=== PATIENT | female | born 1930 | race Caucasian/White ===

== ENCOUNTER 2016-10-23 12:18 | Inpatient (IN) | payer MEDICARE, OTHER ==
[~2016-10-23] VITALS: Ht 162.6 cm; Wt 97.5 kg
[~2016-10-23 12:18] MED LIST: ALBU2.5V38 IH; ASPI-991 PO; CALC-343 PO; CARB-93 PO; CHOL50004 PO; CIPR-262 PO; DEXT15DR23 EACHEYE; ERGO400C PO; ESCI20TA PO; FLUT16SP BNOSTRILS; FURO40TA5 PO; GUAI480S10 PO; LATA2.5D2 EACHEYE; LEVO100T9 PO; LOPE2TAB25 PO; MECL-102 PO; METO2.5T2 PO; OLOP2.5D EACHEYE; OXYB5TAB11 PO; POTA20TA83 PO; PRIM50TA PO; TEMA15CA PO; TOPI50TA21 PO; TRAZ-144 PO; TRIA60LO8 TP
--- NOTE | 2016-10-23 12:24 | NUR ---
PT SIVAKUMAR FROM [facility]. MEDICAL EVAL. HERE FOR FLU SYMPTOMS, COUGH AND CONGESTION X 3 DAYS. 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 STABLE VITALS. AWAITING MD WADDELL.
--- NOTE | 2016-10-23 12:39 | NUR ---
DR LI AT BEDSIDE FOR EVAL.
--- NOTE | 2016-10-23 12:50 | NUR ---
IV LINE STARTED BLOOD DRAWN AND SENT TO LAB.
[2016-10-23 12:57] LABS: BASOPHILS % (AUTO) 0.6 % (0.0-2.0); EOSINOPHILS # (AUTO) 0.2 /CMM (0.0-0.7); EOSINOPHILS % (AUTO) 4.5 % (0.0-6.0); HEMATOCRIT 36 % (33-45); HEMOGLOBIN 12.2 g/dL (11.5-14.8); LYMPHOCYTES # (AUTO) 1.8 /CMM (0.8-4.8); LYMPHOCYTES % (AUTO) 40.8 % (20.0-44.0); MEAN CORPUSCULAR HEMOGLOBIN 32 PG (26.0-33.0); MEAN CORPUSCULAR HGB CONC 34 g/dl (31.0-36.0); MEAN CORPUSCULAR VOLUME 95 fL (82-100); MONOCYTES # (AUTO) 0.4 /CMM (0.1-1.30); MONOCYTES % (AUTO) 7.9 % (2.0-12.0); NEUTROPHILS % (AUTO) 46.2 % (43.0-81.0); PLATELET COUNT (AUTO) 204 /CMM (150-450); RDW COEFFICIENT OF VARIATION 13.1 (11.5-15.0); RED BLOOD CELL COUNT(AUTO) 3.82 MIL/uL (4.0-5.2); WHITE BLOOD COUNT (AUTO) 4.4 K/uL (4.3-11.0)
[2016-10-23 13:07] LABS: CALCIUM, SERUM 8.7 mg/dL (8.5-10.1); CARBON DIOXIDE 26 mmol/L (21-32); CHLORIDE 107 mmol/L (98-107); GLUCOSE 108 mg/dL (74-106); SODIUM SERUM 141 mmol/L (136-145); UREA NITROGEN, BLOOD 15 mg/dL (7-18)
[2016-10-23] MEDS ORDERED: MELO-270 PO (13:09)
[2016-10-23] MEDS ORDERED: DEXT1CAP3 PO (13:09)
[2016-10-23] MEDS ORDERED: ALBU8.5H2 IH (13:09)
[2016-10-23] MEDS ORDERED: GUAI100S11 PO (13:09)
[2016-10-23] MEDS ORDERED: LEVO500T90 PO (13:09)
[2016-10-23] MEDS ORDERED: OXYB10TA PO (13:09)
[2016-10-23] MEDS ORDERED: ACET-2605 PO (13:09)
[2016-10-23 13:13] LABS: ALANINE AMINOTRANSFERASE 10 U/L (12-78); ALKALINE PHOSPHATASE 74 U/L (46-116); ASPARTATE AMINOTRANSFERASE 13 U/L (15-37); TOTAL PROTEIN, SERUM 6.6 g/dL (6.4-8.2)
[2016-10-23 13:15] LABS: TROPONIN I < 0.017 ng/mL (0.00-0.056)
[2016-10-23 13:19] LABS: APPEARANCE,URINE Clear (CLEAR); BILIRUBIN,URINE Negative (NEGATIVE); BLOOD, URINE Negative Ery/uL (NEGATIVE); COLOR,URINE Yellow (YELLOW); KETONES,URINE Negative (NEGATIVE); LEUKOCYTE ESTERASE ,URINE Negative (NEGATIVE); NITRITE, URINE Negative (NEGATIVE); PROTEIN,URINE Negative (NEGATIVE); UGLUCOSE Negative (NEGATIVE); UROBILINOGEN,URINE 0.2 EU/dL (0.2)
[2016-10-23 13:21] LABS: INR 0.95 (0.87-1.13); PROTHROMBIN TIME 9.9 SECS (9.5-12.7)
[2016-10-23 13:24] LABS: BILIRUBIN,DIRECT 0.1 mg/dL (0.0-0.2); BILIRUBIN,TOTAL 0.1 mg/dL (0.2-1.0)
[2016-10-23 13:55] LABS: LACTIC ACID 1.9 mmol/L (0.4-2.0)
--- NOTE | 2016-10-23 13:57 | NUR ---
DOCTOR TOM ON THE PHONE FOR DOCTOR LI.
[2016-10-23] MEDS ORDERED: VANCOMYCIN 1 GM in IV D5W 250 ML IV ONE (14:00)
[2016-10-23] MEDS ORDERED: CEFEPIME 1 GM in IV D5W 50 ML IV ONE (14:00)
[2016-10-23] MEDS ORDERED: IV SET PRIMARY PUMP SET 1 EA INFUS.SET MC ONE (14:10)
--- NOTE | 2016-10-23 15:03 | NUR ---
REPORT GIVEN TO MARIO. PT AWAITING TRANSFER TO FLOOR.
[2016-10-23 15:30] VITALS: BP 125/62
[2016-10-23] MEDS ORDERED: SECONDARY IV SET 1 EA INFUS.SET MC ONE ×2 (15:34→17:38)
[2016-10-23] MEDS ORDERED: IV D5/ 0.9% NACL 1,000 ML IV ONE (15:34)
--- NOTE | 2016-10-23 16:00 | NUR ---
ADMITTED FROM ER BY ELY. PT. AWAKE, ALERT AND ORIENTED X3, BUT FORGETFUL. DENIED PAIN AND SOB. SAO2 >95% ON RA. SKIN INTACT. VS STABLE. LT ARM # 20G. GIVEN UNIT ORIENTATION TO THE PT AND FAMILY. UNDERSTOOD WELL. SIDE RAILS UP. CALL LIGHT WITHIN REACH. BED ALARM ON. MONITOR CLOSELY.
[2016-10-23] MEDS: IV D5/ 0.9% NACL 1,000 ML IV PRN (17:07)
[2016-10-23] MEDS: CEFTRIAXONE 1 G in IV D5W 50 ML IV SCH (17:42)
[2016-10-23] MEDS: ENOXAPARIN SODIUM 40 MG/0.4 ML DISP.SYRIN SQ SCH (17:43)
[2016-10-23] MEDS: AZITHROMYCIN 250 MG TABLET PO SCH (17:52)
--- NOTE | 2016-10-23 18:54 | NUR ---
CLOSING SHIFT PT. AWAKE, ALERT AND ORIENTED X3, FORGETFUL. DENIED PAIN AND SOB. CALL LIGHT WITHIN REACH. SIDE RAILS UP. MONITOR CLOSELY.
[2016-10-23 20:00] VITALS: BP 134/56
--- NOTE | 2016-10-23 20:00 | NUR ---
MS/RN NOTES RECEIVED PATIENT IN BED, AWAKE. FAMILY MEMBER AT BEDSIDE. TANGIRNAQ. BUT ABLE TO VERBALIZE NEEDS. ALERT, ORIENTED X3. NO S/S OF SOB OR DISTRESS. WILL CONTINUE MONITOR AND PROVIDE CARE. CALL LIGHTS WITHIN REACH . PROVIDE FLUIDS. WILL CONTINUE MONITORING.
[2016-10-23] MEDS: ACETAMINOPHEN 325 MG TABLET PO PRN (20:43)
--- NOTE | 2016-10-23 22:00 | NUR ---
MS/RN NOTES PATIENT REQUESTED FOR A SLEEPING PILL STATED "i COULD NOT FALL ASLEEP " MD CALLED AND AWAITING FOR RETURN CALL. KEPT PATIENT COMFORTABLE. PATIENT PREFER TO WATCH TV HER HER PREFERENCE SO SHE CAN FALL ASLEEP.
[2016-10-24] MEDS: ACETAMINOPHEN 325 MG TABLET PO PRN ×2 (01:45→09:37)
--- NOTE | 2016-10-24 01:46 | NUR ---
MS/RN NOTES PATIENT REQUESTED PAIN MEDICATION TO RELIEVE PAIN IN THE HEAD.
[2016-10-24] MEDS: IV D5/ 0.9% NACL 1,000 ML IV PRN (04:19)
--- NOTE | 2016-10-24 06:07 | NUR ---
MS/RN CLOSING NOTES PATIENT IN BED, AWAKE, NO S/S OF SOB OR DISTRESS. PREFER TO HAVE TV ON TO HELP HER SLEEP AND VERBALIZED THE NEED TO HAVE SLEEPING PILL. MD LEFT MESSAGE AWAITING FOR ORDER. PATIENT WILL ENDORSE TO AM RN FOR TESHA.PROVIDED COMFORT MEASURES, ATTEND TO NEEDS AND MONITORED FOR ANY PAIN AND EFFECTIVENESS.
[2016-10-24 07:03] LABS: BASOPHILS % (AUTO) 0.7 % (0.0-2.0); EOSINOPHILS # (AUTO) 0.3 /CMM (0.0-0.7); EOSINOPHILS % (AUTO) 6.5 % (0.0-6.0); HEMATOCRIT 34 % (33-45); HEMOGLOBIN 11.3 g/dL (11.5-14.8); LYMPHOCYTES # (AUTO) 1.8 /CMM (0.8-4.8); LYMPHOCYTES % (AUTO) 40.6 % (20.0-44.0); MEAN CORPUSCULAR HEMOGLOBIN 32 PG (26.0-33.0); MEAN CORPUSCULAR HGB CONC 33 g/dl (31.0-36.0); MEAN CORPUSCULAR VOLUME 95 fL (82-100); MONOCYTES # (AUTO) 0.4 /CMM (0.1-1.30); MONOCYTES % (AUTO) 8.6 % (2.0-12.0); NEUTROPHILS # (AUTO) 1.9 /CMM (1.8-8.9); NEUTROPHILS % (AUTO) 43.6 % (43.0-81.0); PLATELET COUNT (AUTO) 216 /CMM (150-450); RDW COEFFICIENT OF VARIATION 13.2 (11.5-15.0); RED BLOOD CELL COUNT(AUTO) 3.58 MIL/uL (4.0-5.2); WHITE BLOOD COUNT (AUTO) 4.4 K/uL (4.3-11.0)
[2016-10-24] MEDS: PANTOPRAZOLE 40 MG TABLET.DR PO SCH (07:30)
--- NOTE | 2016-10-24 07:36 | NUR ---
RN AM NOTES RECEIVED PATIENT AWAKE IN BED, WATCHING TV. ALERT AND ORIENTED X3. NO SOB, DISTRESS OR PAIN. WILL CONTINUE TO MONITOR.
[2016-10-24 08:00] VITALS: BP 104/49
[2016-10-24 08:20] LABS: CALCIUM, SERUM 8.3 mg/dL (8.5-10.1); MAGNESIUM 1.5 mg/dL (1.8-2.4); PHOSPHORUS 3.7 mg/dL (2.5-4.9)
--- NOTE | 2016-10-24 08:40 | NUR ---
SPOKE TO DAUGHTER GOPAL RE: MD ROUNDS. INFORMED PATIENT THAT WE DO NOT KNOW THE MD'S EXACT SCHEDULE, BUT I CAN CALL HIS OFFICE TO FIND OUT. DAUGHTER AGREED. CALLED AND LEFT A MESSAGE AT PRIMARY MD'S OFFICE. INFORMED DAUGHTER, SHE VERBALIZED UNDERSTANDING. WILL CONTINUE TO MONITOR PATIENT
[2016-10-24] MEDS ORDERED: Magnesium 1GM/D5W 100ML PREMIX 100 ML IV SCH (11:09)
[2016-10-24] MEDS ORDERED: ACETAMINOPHEN W/ CODEINE#3 1 EA TABLET PO PRN (12:00)
[2016-10-24] MEDS ORDERED: FUROSEMIDE 20 MG/2 ML VIAL IV ONE (12:30)
[2016-10-24] MEDS ORDERED: SECONDARY IV SET 1 EA INFUS.SET MC ONE (13:11)
[2016-10-24] MEDS ORDERED: ALBUTEROL FS 2.5 MG/3 ML VIAL.NEB NEB PRN (13:30)
[2016-10-24] MEDS: Magnesium 1GM/D5W 100ML PREMIX 100 ML IV SCH ×2 (13:34→14:03)
[2016-10-24] MEDS: CARBIDOPA/LEVODOPA 25/100 MG 1 UDTAB PO SCH ×2 (13:34→18:06)
[2016-10-24] MEDS: ASPIRIN EC 81 MG TABLET.DR PO SCH (13:34)
[2016-10-24] MEDS: POLYVINYL ALCOHOL 15 ML BOTTLE EACHEYE SCH (13:35)
[2016-10-24] MEDS: FLUTICASONE PROPIONATE 16 GM BOTTLE NS SCH (13:35)
--- NOTE | 2016-10-24 15:35 | NUR ---
CALLED MD X 2 RE: PATIENT'S ALLERGIES AND PAIN MEDICATIONS. STILL AWAITING ANSWER
[2016-10-24 16:00] VITALS: BP 123/63
[2016-10-24] MEDS: AZITHROMYCIN 250 MG TABLET PO SCH (18:06)
[2016-10-24] MEDS: PRIMIDONE 50 MG TABLET PO SCH (18:06)
[2016-10-24] MEDS: TOPIRAMATE 25 MG TABLET PO SCH (18:06)
[2016-10-24] MEDS: ENOXAPARIN SODIUM 40 MG/0.4 ML DISP.SYRIN SQ SCH (18:10)
[2016-10-24] MEDS: CEFTRIAXONE 1 G in IV D5W 50 ML IV SCH (18:15)
[2016-10-24] MEDS ORDERED: TRAMADOL HCL 50 MG TABLET PO PRN (18:30)
--- NOTE | 2016-10-24 18:44 | NUR ---
RN PM NOTES PATIENT TOLERATED IV INFUSIONS WELL. TOLERATED DINNER WITH NO EPISODES OF SOB. WITH SLIGHT PRODUCTIVE COUGH, CLEAR, WHITE SPUTUM. MD ORDERED PAIN MEDICATIONS REQUESTED BY PATIENT. ALL HOME MEDS IN CHART. MED REC DONE BY MD SANTOS. WILL ENDORSE TO NEXT SHIFT.
--- NOTE | 2016-10-24 19:39 | NUR ---
RN OPEN NOTES RECEIVED PATIENT AWAKE IN BED. A/OX3. NO SIGNS OF DISTRESS OR DISCOMFORT. BREATHING EVEN AND UNLABORED. ON 2LMP O2 VIA NC. IV ACCESS IN LAC WITH NS INFUSING, PATENT AND INTACT, NO SIGNS OF REDNESS OR INFILTRATION. BED IN LOW LOCKED POSITION WITH SIDE RAILS X2. CALL LIGHT WITHIN REACH. WILL CONTINUE TO MONITOR.
[2016-10-24 20:00] VITALS: BP 125/50
[2016-10-24] MEDS ORDERED: MISCELLANEOUS MED 1 EA EA PO SCH (22:00)
[2016-10-24] MEDS: TRAZODONE 50 MG TABLET PO SCH (22:39)
[2016-10-24] MEDS: LATANOPROST EYE DROP 0.005% 2.5 ML BOTTLE EACHEYE SCH (22:40)
--- NOTE | 2016-10-25 06:58 | NUR ---
RN CLOSING NOTES PATIENT RESTING IN BED. A/OX3. NO SIGNS OF DISTRESS OR DISCOMFORT. BREATHING EVEN AND UNLABORED. ON 2LMP O2 VIA NC. IV ACCESS IN LAC, PATENT AND INTACT, NO SIGNS OF REDNESS OR INFILTRATION. NO SIGNIFICANT CHANGES THROUGH THE NIGHT. PATIENT KEPT CLEAN DRY AND COMFORTABLE. BED IN LOW LOCKED POSITION WITH SIDE RAILS X2. CALL LIGHT WITHIN REACH. WILL ENDORSE TO AM SHIFT FOR TESHA.
[2016-10-25 06:59] LABS: BASOPHILS % (AUTO) 0.8 % (0.0-2.0); EOSINOPHILS # (AUTO) 0.3 /CMM (0.0-0.7); EOSINOPHILS % (AUTO) 6.5 % (0.0-6.0); HEMATOCRIT 33 % (33-45); HEMOGLOBIN 11.2 g/dL (11.5-14.8); LYMPHOCYTES # (AUTO) 1.5 /CMM (0.8-4.8); LYMPHOCYTES % (AUTO) 34.3 % (20.0-44.0); MEAN CORPUSCULAR HEMOGLOBIN 32 PG (26.0-33.0); MEAN CORPUSCULAR HGB CONC 34 g/dl (31.0-36.0); MEAN CORPUSCULAR VOLUME 95 fL (82-100); MONOCYTES # (AUTO) 0.4 /CMM (0.1-1.30); MONOCYTES % (AUTO) 8.8 % (2.0-12.0); NEUTROPHILS # (AUTO) 2.2 /CMM (1.8-8.9); NEUTROPHILS % (AUTO) 49.6 % (43.0-81.0); PLATELET COUNT (AUTO) 200 /CMM (150-450); RDW COEFFICIENT OF VARIATION 13.7 (11.5-15.0); RED BLOOD CELL COUNT(AUTO) 3.49 MIL/uL (4.0-5.2); WHITE BLOOD COUNT (AUTO) 4.5 K/uL (4.3-11.0)
--- NOTE | 2016-10-25 07:10 | NUR ---
MS RN OPENING RECEIVED PT A/OX4 SLEEPING AWAKE TO NAME. PATIENT DENIES SOB, DIFFICULTY BREATHING AND STATES "BARELY ANY" PAIN 2/10 GENERALIZED FROM COUGHING. PT RESPIRATIONS EQUAL AND UNLABORED. PT STATES NO NEEDS AT THIS TIME. IN POSITION OF COMFORT. NC ON 2 LPM; WE WILL CHECK PATIENT ROOM AIR STATUS TODAY. PT WITH CALL LIGHT IN REACH, BED LOWERED AND LOCKED, RAILS UPX3 FOR SAFETY AND WILL ROUND Q2H OR LESS PER NEEDS. BED ALARM ON.
[2016-10-25 07:26] LABS: CREATININE 0.9 mg/dL (0.6-1.3); MAGNESIUM 2.1 mg/dL (1.8-2.4); POTASSIUM 4.1 mmol/L (3.5-5.1)
[2016-10-25 08:00] VITALS: BP 146/81
[2016-10-25] MEDS: CARBIDOPA/LEVODOPA 25/100 MG 1 UDTAB PO SCH ×3 (08:19→16:55)
[2016-10-25] MEDS: ASPIRIN EC 81 MG TABLET.DR PO SCH (08:19)
[2016-10-25] MEDS: MELOXICAM 7.5 MG TABLET PO SCH (08:20)
[2016-10-25] MEDS: PANTOPRAZOLE 40 MG TABLET.DR PO SCH (08:20)
[2016-10-25] MEDS: TOPIRAMATE 25 MG TABLET PO SCH ×2 (08:20→16:55)
[2016-10-25] MEDS: LEVOTHYROXINE SODIUM 100 MCG TABLET PO SCH (08:20)
[2016-10-25] MEDS: PRIMIDONE 50 MG TABLET PO SCH ×2 (08:20→16:55)
[2016-10-25] MEDS: FLUTICASONE PROPIONATE 16 GM BOTTLE NS SCH (08:22)
[2016-10-25] MEDS: POLYVINYL ALCOHOL 15 ML BOTTLE EACHEYE SCH (08:22)
[2016-10-25 09:51] LABS: IRON, SERUM 49 ug/dl (50-175); TOTAL IRON BINDING CAPACITY 206 ug/dl (250-450)
[2016-10-25] MEDS: FUROSEMIDE 40 MG/4 ML VIAL IV SCH ×3 (10:09→16:55)
[2016-10-25 10:44] LABS: FERRITIN 67 ng/mL (8-388)
--- NOTE | 2016-10-25 15:23 | NUR ---
MS RN NOTES NOTIFIED MD SANTOS PATIENT POSITIVE FOR MRSA NARES
[2016-10-25 16:00] VITALS: BP 136/79
[2016-10-25] MEDS: Z GUARD REMEDY 2 OZ OINT TP PRN (16:55)
[2016-10-25] MEDS: MUPIROCIN OINT 2% 22 GM TUBE SCH ×2 (16:55→22:42)
[2016-10-25] MEDS: CEFTRIAXONE 1 G in IV D5W 50 ML IV SCH (16:55)
[2016-10-25] MEDS: AZITHROMYCIN 250 MG TABLET PO SCH (16:55)
[2016-10-25] MEDS: ENOXAPARIN SODIUM 40 MG/0.4 ML DISP.SYRIN SQ SCH (17:15)
--- NOTE | 2016-10-25 18:37 | NUR ---
MS RN CLOSING PT STABLE NO COMPLAINTS AND NO CHANGES THROUGHOUT THE DAY. PT STATES NO NEEDS AT THIS TIME. ALL DUE MEDS GIVEN AND ALL NEEDS MET. PATIENT IN POSITION OF COMFORT WITH CALL LIGHT IN REACH, BED LOWERED AND LOCKED, RAILS UPX3 FOR SAFETY AND WILL ENDORSE TO RN AT THIS TIME.
--- NOTE | 2016-10-25 19:15 | NUR ---
RN OPEN NOTES RECEIVED PATIENT AWAKE IN BED. A/OX4. NO SIGNS OF DISTRESS OR DISCOMFORT. BREATHING EVEN AND UNLABORED. ON 2LMP O2 VIA NC. IV ACCESS IN LFA, PATENT AND INTACT, NO SIGNS OF REDNESS OR INFILTRATION. DENIES ANY PAIN AT THIS TIME. BED IN LOW LOCKED POSITION WITH SIDE RAILS X3. CALL LIGHT WITHIN REACH. WILL CONTINUE TO MONITOR.
[2016-10-25 19:45] VITALS: BP 96/44
[2016-10-25 20:00] VITALS: BP 96/44
[2016-10-25 22:41] VITALS: BP 111/55
[2016-10-25] MEDS: LATANOPROST EYE DROP 0.005% 2.5 ML BOTTLE EACHEYE SCH (22:41)
[2016-10-25] MEDS: ESCITALOPRAM OXALATE (10 MG) 10 MG TABLET PO SCH (22:41)
[2016-10-25] MEDS: TRAZODONE 50 MG TABLET PO SCH (22:41)
--- NOTE | 2016-10-26 07:15 | NUR ---
MS RN OPENING RECEIVED PT A/OX4 DENIES SOB, DIFFICULTY BREATHING OR PAIN. PATIENT STATES NON PRODUCTIVE COUGH STILL. RESPIRATIONS EQUAL AND UNLABORED NO MUCOUS PRODUCTION WITH COUGHING. PATIENT STATES NO NEEDS AT THIS TIME. PATIENT EDUCATED IMPORTANCE OF GETTING OUT OF BED, TURNING AND OFFLOADING TO PROTECT SKIN. PATIENT IS AGREEABLE TO ALLOWING OFFLOADING IN BED AND PT WAS ORDERED YESTERDAY AND THEY WILL SEE TODAY. CALL LIGHT IN REACH, BED LOWERED AND LOCKED, RAILS UPX3 FOR SAFETY AND BED ALARM ON. WILL CONTINUE TO ROUND Q2H OR LESS PER NEEDS
[2016-10-26 07:18] LABS: ALBUMIN 2.6 g/dL (3.4-5.0); BILIRUBIN,TOTAL 0.2 mg/dL (0.2-1.0); CALCIUM, SERUM 8.1 mg/dL (8.5-10.1); CREATININE 1.1 mg/dL (0.6-1.3); MAGNESIUM 1.9 mg/dL (1.8-2.4); PHOSPHORUS 3.4 mg/dL (2.5-4.9); POTASSIUM 3.6 mmol/L (3.5-5.1)
[2016-10-26 07:45] LABS: BASOPHILS % (AUTO) 0.6 % (0.0-2.0); EOSINOPHILS # (AUTO) 0.3 /CMM (0.0-0.7); EOSINOPHILS % (AUTO) 6.6 % (0.0-6.0); HEMATOCRIT 36 % (33-45); HEMOGLOBIN 11.9 g/dL (11.5-14.8); LYMPHOCYTES % (AUTO) 38.9 % (20.0-44.0); MEAN CORPUSCULAR HEMOGLOBIN 32 PG (26.0-33.0); MEAN CORPUSCULAR HGB CONC 33 g/dl (31.0-36.0); MEAN CORPUSCULAR VOLUME 95 fL (82-100); MONOCYTES # (AUTO) 0.5 /CMM (0.1-1.30); NEUTROPHILS # (AUTO) 2.3 /CMM (1.8-8.9); NEUTROPHILS % (AUTO) 44.9 % (43.0-81.0); PLATELET COUNT (AUTO) 231 /CMM (150-450); RDW COEFFICIENT OF VARIATION 14.2 (11.5-15.0); RED BLOOD CELL COUNT(AUTO) 3.75 MIL/uL (4.0-5.2)
--- NOTE | 2016-10-26 07:56 | NUR ---
RN CLOSING NOTES PATIENT AWAKE IN BED. A/OX4. NO SIGNS OF DISTRESS OR DISCOMFORT. BREATHING EVEN AND UNLABORED. ON 2LMP O2 VIA NC. IV ACCESS IN LFA, PATENT AND INTACT, NO SIGNS OF REDNESS OR INFILTRATION. DENIES ANY PAIN AT THIS TIME. NO SIGNIFICANT CHANGES THROUGH THE NIGHT. PATIENT KEPT CLEAN DRY AND COMFORTABLE. REPOSITIONED PT Q2H. BED IN LOW LOCKED POSITION WITH SIDE RAILS X3. CALL LIGHT WITHIN REACH. ENDORSED TO AM SHIFT FOR TESHA.
[2016-10-26 08:00] VITALS: BP 117/61
[2016-10-26] MEDS: LEVOTHYROXINE SODIUM 100 MCG TABLET PO SCH (08:25)
[2016-10-26] MEDS: TOPIRAMATE 25 MG TABLET PO SCH ×2 (08:26→16:48)
[2016-10-26] MEDS: PRIMIDONE 50 MG TABLET PO SCH ×2 (08:26→16:48)
[2016-10-26] MEDS: FUROSEMIDE 40 MG TABLET PO SCH (08:26)
[2016-10-26] MEDS: ASPIRIN EC 81 MG TABLET.DR PO SCH (08:26)
[2016-10-26] MEDS: CARBIDOPA/LEVODOPA 25/100 MG 1 UDTAB PO SCH ×3 (08:26→16:47)
[2016-10-26] MEDS: PANTOPRAZOLE 40 MG TABLET.DR PO SCH (08:26)
[2016-10-26] MEDS: MELOXICAM 7.5 MG TABLET PO SCH (08:26)
[2016-10-26] MEDS: Z GUARD REMEDY 2 OZ OINT TP PRN ×3 (08:26→17:52)
[2016-10-26] MEDS: POLYVINYL ALCOHOL 15 ML BOTTLE EACHEYE SCH (08:26)
[2016-10-26] MEDS: MUPIROCIN OINT 2% 22 GM TUBE SCH ×2 (08:26→21:24)
[2016-10-26] MEDS: FLUTICASONE PROPIONATE 16 GM BOTTLE NS SCH (08:27)
[2016-10-26] MEDS ORDERED: POTASSIUM CHLORIDE 20 MEQ TAB.PRT.SR PO SCH (09:00)
--- NOTE | 2016-10-26 10:30 | NUR ---
MS RN NOTES PATIENT SITTING IN CHAIR FROM PHYSICAL THERAPY. DISCUSSED WITH PATIENT IMPORTANCE ON NOT GETTING OUT OF BED WITHOUT ASSISTANCE. WE DO NOT WNT HER FALLING. PATIENT STATES UNDERSTANDING. MEAL TRAY PLACED IN FRONT OF PATIENT FOR ADDED FALL PRECATIONS
--- NOTE | 2016-10-26 10:49 | NUR ---
MS RN NOTES AFTER EXPLAINING TO PATIENT NOT TO GET UP FROM CHAIR I WALK INTO ROOM AND SHE IS GETTING INTO BED BY HERSELF. RE EDCUATED PATIENT AND ASSISTED TO BED PLACED BED ALARM ON AND RAILS UPX3. PATIENT IN POSITION OF COMFORT
[2016-10-26] MEDS: FUROSEMIDE 100 MG/10 ML VIAL IV SCH ×3 (10:59→17:49)
[2016-10-26 16:00] VITALS: BP 122/53
[2016-10-26] MEDS: AZITHROMYCIN 250 MG TABLET PO SCH (16:47)
[2016-10-26] MEDS: CEFTRIAXONE 1 G in IV D5W 50 ML IV SCH (16:47)
[2016-10-26] MEDS: ENOXAPARIN SODIUM 40 MG/0.4 ML DISP.SYRIN SQ SCH (16:51)
--- NOTE | 2016-10-26 19:30 | NUR ---
MS RN NOTES RECEIVED ON BED SLEEPING,AROUSABLE TO VERBAL STIMULI,A/O X2-3,FORGETFUL,BED ALARM ON.BREATHING REGULAR,NOT IN ANY FORM OF DISTRESS.SALINE LOCK LFA INTACT AND PATENT.ISOLATION PRECAUTION FOR MRSA NARES.CALL LIGHT IN REACH,NEEDS ANTICIPATED.
[2016-10-26 20:05] VITALS: BP 106/58
[2016-10-26 21:13] VITALS: BP 106/58
[2016-10-26] MEDS: LATANOPROST EYE DROP 0.005% 2.5 ML BOTTLE EACHEYE SCH (21:24)
[2016-10-26] MEDS: ESCITALOPRAM OXALATE (10 MG) 10 MG TABLET PO SCH (21:25)
[2016-10-26] MEDS: TRAZODONE 50 MG TABLET PO SCH (21:25)
--- NOTE | 2016-10-26 22:00 | NUR ---
MS RN NOTES DUE PO MEDS ADMINISTERED,TAKEN WELL.
--- NOTE | 2016-10-27 03:00 | NUR ---
MS RN NOTES SOUND ASLEEP,KEPT WARM AND COMFORTABLE.
--- NOTE | 2016-10-27 06:10 | NUR ---
MS RN NOTES NO SIGNIFICANT CHANGE IN STATUS.NO SOB,AFEBRILE.REPOSITION TO COMFORT.IN NO ACUTE DISTRESS.WILL ENDORSE TO DAY NURSE FOR TESHA.
[2016-10-27 06:59] LABS: BASOPHILS % (AUTO) 0.8 % (0.0-2.0); EOSINOPHILS # (AUTO) 0.3 /CMM (0.0-0.7); EOSINOPHILS % (AUTO) 5.6 % (0.0-6.0); HEMATOCRIT 40 % (33-45); HEMOGLOBIN 13.3 g/dL (11.5-14.8); LYMPHOCYTES # (AUTO) 1.7 /CMM (0.8-4.8); LYMPHOCYTES % (AUTO) 32.9 % (20.0-44.0); MEAN CORPUSCULAR HEMOGLOBIN 31 PG (26.0-33.0); MEAN CORPUSCULAR HGB CONC 33 g/dl (31.0-36.0); MEAN CORPUSCULAR VOLUME 95 fL (82-100); MONOCYTES # (AUTO) 0.5 /CMM (0.1-1.30); NEUTROPHILS # (AUTO) 2.7 /CMM (1.8-8.9); NEUTROPHILS % (AUTO) 51.7 % (43.0-81.0); PLATELET COUNT (AUTO) 242 /CMM (150-450); RDW COEFFICIENT OF VARIATION 13.5 (11.5-15.0); RED BLOOD CELL COUNT(AUTO) 4.26 MIL/uL (4.0-5.2); WHITE BLOOD COUNT (AUTO) 5.1 K/uL (4.3-11.0)
--- NOTE | 2016-10-27 07:10 | NUR ---
MS RN OPENING RECEIVED PATIENT AWAKE DENIES SOB, DIFFICULTY BREATHING OR PAIN. BREATHING UNLABORED AND EQUAL. PATIENT ON 2LPM TOLERATING WELL. EDUCATED PATIENT TO NOT GET OUT OF BED WITHOUT CALLING FOR ASSISTANCE; BED ALARM ON. PATIENT STATES NO NEEDS AT THIS TIME AND PATIENT APPEARS STABLE. PATIENT WITH CALL LIGHT IN REACH, BED LOWERED AND LOCKED, RAILS UPX3 AND BED ALARM ON. WILL ROUND Q2H OR LESS PER NEEDS.
[2016-10-27 07:11] LABS: BILIRUBIN,TOTAL 0.2 mg/dL (0.2-1.0); CALCIUM, SERUM 8.6 mg/dL (8.5-10.1); CREATININE 1.2 mg/dL (0.6-1.3); MAGNESIUM 2.1 mg/dL (1.8-2.4); PHOSPHORUS 4.3 mg/dL (2.5-4.9); POTASSIUM 3.3 mmol/L (3.5-5.1); TOTAL PROTEIN, SERUM 6.7 g/dL (6.4-8.2)
[2016-10-27 08:00] VITALS: BP 112/60
[2016-10-27] MEDS: TOPIRAMATE 25 MG TABLET PO SCH ×2 (08:20→16:04)
[2016-10-27] MEDS: Z GUARD REMEDY 2 OZ OINT TP PRN ×2 (08:20→16:02)
[2016-10-27] MEDS: ASPIRIN EC 81 MG TABLET.DR PO SCH (08:20)
[2016-10-27] MEDS: CARBIDOPA/LEVODOPA 25/100 MG 1 UDTAB PO SCH ×3 (08:20→16:04)
[2016-10-27] MEDS: MELOXICAM 7.5 MG TABLET PO SCH (08:20)
[2016-10-27] MEDS: LEVOTHYROXINE SODIUM 100 MCG TABLET PO SCH (08:20)
[2016-10-27] MEDS: PRIMIDONE 50 MG TABLET PO SCH ×2 (08:20→16:04)
[2016-10-27] MEDS: PANTOPRAZOLE 40 MG TABLET.DR PO SCH (08:20)
[2016-10-27] MEDS: MUPIROCIN OINT 2% 22 GM TUBE SCH ×2 (08:23→21:23)
[2016-10-27] MEDS: FLUTICASONE PROPIONATE 16 GM BOTTLE NS SCH (08:23)
[2016-10-27] MEDS: POLYVINYL ALCOHOL 15 ML BOTTLE EACHEYE SCH (08:24)
[2016-10-27] MEDS ORDERED: POTASSIUM CHLORIDE 20 MEQ TAB.PRT.SR PO SCH (11:00)
[2016-10-27] MEDS: POTASSIUM CHLORIDE 20 MEQ TAB.PRT.SR PO SCH ×2 (12:20→13:41)
[2016-10-27] MEDS: FUROSEMIDE 100 MG/10 ML VIAL IV SCH ×3 (12:21→18:55)
[2016-10-27 16:00] VITALS: BP 116/67
[2016-10-27] MEDS: ENOXAPARIN SODIUM 40 MG/0.4 ML DISP.SYRIN SQ SCH (16:03)
[2016-10-27] MEDS: AZITHROMYCIN 250 MG TABLET PO SCH (16:04)
[2016-10-27] MEDS: CEFTRIAXONE 1 G in IV D5W 50 ML IV SCH (16:05)
--- NOTE | 2016-10-27 18:17 | NUR ---
MS RN CLOSING PT STABLE NO COMPLAINTS NO COMPLICATIONS. ALL DUE MEDS GIVEN AND ALL NEEDS MET. PATIENT IN POSITION OF COMFORT AND CALL LIGHT IN REACH, BED LOWERED AND LOCKED, RAILS UPX3 FOR SAFETY WITH BED ALARM ON. PATIENT WAS TURNED Q2H AND HEELS AND ELBOWS OFFLOADED THROUGHOUT THE DAY. WILL ENDORSE CARE TO MIGUEL RN
--- NOTE | 2016-10-27 19:20 | NUR ---
MS RN NOTES RECEIVED ON BED AWAKE X3,WATCHING TV PROGRAM.BREATH SOUND DIMINISHED ON BOTH LOWER LUNG FIELD DUE TO PNA.O2 IN USED AT 2L/NC TO KEEP O2 SAT ABOVE 90%.ISOLATION PRECAUTION FOR MRSA NARES,ON BACTROBAN OINTMENT ON BOTH NARES.WILL CONTINUE TO MONITOR STATUS.
[2016-10-27 20:00] VITALS: BP 114/66
[2016-10-27 20:51] VITALS: BP 114/66
[2016-10-27] MEDS: LATANOPROST EYE DROP 0.005% 2.5 ML BOTTLE EACHEYE SCH (21:23)
[2016-10-27] MEDS: ESCITALOPRAM OXALATE (10 MG) 10 MG TABLET PO SCH (21:24)
[2016-10-27] MEDS: TRAZODONE 50 MG TABLET PO SCH (21:24)
--- NOTE | 2016-10-27 21:33 | NUR ---
MS RN NOTES DUE PO MEDS ADMINISTERED
--- NOTE | 2016-10-28 01:00 | NUR ---
MS RN NOTES SLEEPING AT THIS TIME
--- NOTE | 2016-10-28 06:21 | NUR ---
MS RN NOTES NO SIGNIFICANT CHANGE IN STATUS.NEGATIVE FOR SOB.ALL NEEDS ATTENDED.POSSIBLE D/C BACK TO [facility] TODAY.WILL ENDORSE TO DAY NURSE FOR TESHA.
[2016-10-28 06:51] LABS: BASOPHILS % (AUTO) 0.8 % (0.0-2.0); EOSINOPHILS # (AUTO) 0.2 /CMM (0.0-0.7); EOSINOPHILS % (AUTO) 3.8 % (0.0-6.0); HEMATOCRIT 42 % (33-45); LYMPHOCYTES # (AUTO) 1.8 /CMM (0.8-4.8); LYMPHOCYTES % (AUTO) 31.9 % (20.0-44.0); MEAN CORPUSCULAR HEMOGLOBIN 32 PG (26.0-33.0); MEAN CORPUSCULAR HGB CONC 34 g/dl (31.0-36.0); MEAN CORPUSCULAR VOLUME 94 fL (82-100); MONOCYTES # (AUTO) 0.5 /CMM (0.1-1.30); MONOCYTES % (AUTO) 8.9 % (2.0-12.0); NEUTROPHILS # (AUTO) 3.1 /CMM (1.8-8.9); NEUTROPHILS % (AUTO) 54.6 % (43.0-81.0); PLATELET COUNT (AUTO) 271 /CMM (150-450); RDW COEFFICIENT OF VARIATION 13.4 (11.5-15.0); RED BLOOD CELL COUNT(AUTO) 4.45 MIL/uL (4.0-5.2); WHITE BLOOD COUNT (AUTO) 5.6 K/uL (4.3-11.0)
[2016-10-28 07:24] LABS: ALBUMIN 3.2 g/dL (3.4-5.0); BILIRUBIN,TOTAL 0.3 mg/dL (0.2-1.0); CREATININE 1.3 mg/dL (0.6-1.3); MAGNESIUM 2.1 mg/dL (1.8-2.4); PHOSPHORUS 4.5 mg/dL (2.5-4.9); POTASSIUM 3.7 mmol/L (3.5-5.1); TOTAL PROTEIN, SERUM 7.1 g/dL (6.4-8.2)
--- NOTE | 2016-10-28 07:29 | NUR ---
RN NOTES RECEIVED PT IN BED. AWAKE, ALERT, ORIENTED X3. IN NO APPARENT DISTRESS. RESPIRATIONS EVEN AND UNLABORED. DENIES PAIN AND DISCOMFORT. WILL CONTINUE TO MONITOR
[2016-10-28] MEDS: PANTOPRAZOLE 40 MG TABLET.DR PO SCH (07:56)
[2016-10-28] MEDS: LEVOTHYROXINE SODIUM 100 MCG TABLET PO SCH (07:57)
[2016-10-28 08:00] VITALS: BP 106/54
--- NOTE | 2016-10-28 08:30 | NUR ---
RN NOTES PT SEEN AND EXAMINED BY DR SANTOS- WITH ORDER FOR DISCHARGE. INFORMED CENTERLESS GRINDING MACHINE ADJUSTER. SAID TO WAIT FOR CASE MANAGEMENT. NEED UPDATE WHETHER PT TO BE DISCHARGE IN LONG-TERM OR SNF ([facility]). NOTED. WILL CONTINUE TO MONITOR
[2016-10-28] MEDS: PRIMIDONE 50 MG TABLET PO SCH (08:38)
[2016-10-28] MEDS: ASPIRIN EC 81 MG TABLET.DR PO SCH (08:38)
[2016-10-28] MEDS: CARBIDOPA/LEVODOPA 25/100 MG 1 UDTAB PO SCH ×2 (08:38→13:34)
[2016-10-28] MEDS: FUROSEMIDE 40 MG TABLET PO SCH (08:38)
[2016-10-28] MEDS: TOPIRAMATE 25 MG TABLET PO SCH (08:38)
[2016-10-28] MEDS: MELOXICAM 7.5 MG TABLET PO SCH (08:38)
[2016-10-28] MEDS: MUPIROCIN OINT 2% 22 GM TUBE SCH (08:39)
[2016-10-28] MEDS: POLYVINYL ALCOHOL 15 ML BOTTLE EACHEYE SCH (08:40)
[2016-10-28] MEDS: FLUTICASONE PROPIONATE 16 GM BOTTLE NS SCH (08:40)
--- NOTE | 2016-10-28 10:30 | NUR ---
RN NOTES PT IN BED. NO DISTRESS. TOLERATED ALL MEDS AND HAD GOOD APPETITE FOR BREAKFAST. SKIN AND BODY ASSESSMENT DONE FOR DISCHARGE- INTACT. EXIT CARE DONE FOR DISCHARGE INSTRUCTIONS.
--- NOTE | 2016-10-28 11:30 | NUR ---
RN NOTES PT TO BE DISCHARGED TO SNF ([facility]). REPORT GIVEN TO MICHELA. ALSO CALLED NELSY (DAUGHTER) AND GAVE UPDATE. APPRECIATED INFORMATION. WILL AWAIT PICKUP; SET FOR 130PM.
--- NOTE | 2016-10-28 14:12 | NUR ---
rn notes pt discharged as ordered to [facility]. Pt in no distress. vs wnl
== END 2016-10-28 14:10 | DRG 193 ==
LOC: ER 12:19 → MED 14:56
PROVIDERS: ADMIT Legal Medicine; ATTEND Legal Medicine
DX: J15.9 Unspecified bacterial pneumonia (principal); G93.40 Encephalopathy, unspecified; J44.0 Chronic obstructive pulmonary disease with (acute) lower respiratory infection; F03.90 Unspecified dementia, unspecified severity, without behavioral disturbance, psychotic disturbance, mood disturbance, and anxiety; G20 Parkinson's disease; J45.909 Unspecified asthma, uncomplicated; K21.9 Gastro-esophageal reflux disease without esophagitis; I50.9 Heart failure, unspecified; I11.0 Hypertensive heart disease with heart failure; M19.90 Unspecified osteoarthritis, unspecified site; F32.9 Major depressive disorder, single episode, unspecified; F41.9 Anxiety disorder, unspecified; R42 Dizziness and giddiness
CPT/HCPCS: 36415; 71010-TC; 80048-TC; 80053-TC; 80076-TC; 81000-TC; 82728-TC; 83540-TC; 83605-TC; 83735-TC; 84100-TC; 84484-TC; 85025-TC; 85730-TC; 87040-TC; 87081-TC; 93307-TC; 94799-TC; 97001-TC; A4606; J0692; J0696; J1650; J1940; J3370; J3475; J7042; J7060; Z7610

== ENCOUNTER 2017-04-26 03:48 | Inpatient (IN) | payer MEDICARE, OTHER ==
[~2017-04-26] VITALS: Ht 167.6 cm; Wt 85.7 kg
[~2017-04-26 03:48] MED LIST changes: +ACET-2605 PO; -ALBU2.5V38 IH; +ALBU8.5H2 IH; -CALC-343 PO; -CHOL50004 PO; -CIPR-262 PO; -ERGO400C PO; -GUAI480S10 PO; -LOPE2TAB25 PO; -MECL-102 PO; +MELO-270 PO; -METO2.5T2 PO; -OLOP2.5D EACHEYE; -OXYB5TAB11 PO; -TEMA15CA PO; -TRIA60LO8 TP
--- NOTE | 2017-04-26 03:55 | NUR ---
TO BED 6 A N 86 YO FEMALE [facility]RA [facility] C/O "ABD PAIN/VOMITED X1." PATIENT ALSO REPORTS OF DYSURIA. VSS. AFEBRILE. NAD NOTED. BREATHING EVEN AND UNLABORED. NONDIPHORETIC. COMFORT MEASURES RENDERED. AWAITING FOR ER MD WADDELL.
[2017-04-26] MEDS ORDERED: IV NS 0.9% 500 ML BAG IV ONE (04:00)
[2017-04-26] MEDS ORDERED: ONDANSETRON HCL/PF 4 MG/2 ML VIAL IVP ONE (04:00)
--- NOTE | 2017-04-26 04:05 | NUR ---
Dr Ordoñez at bedside to eval.
--- NOTE | 2017-04-26 04:09 | NUR ---
started a saline lock on the rac g20, blood drawn and sent to lab.
[2017-04-26] MEDS ORDERED: ONDANSETRON HCL/PF 4 MG/2 ML VIAL ONE (04:11)
[2017-04-26 04:19] LABS: BASOPHILS % (AUTO) 0.3 % (0.0-2.0); EOSINOPHILS # (AUTO) 0.5 /CMM (0.0-0.7); EOSINOPHILS % (AUTO) 8.1 % (0.0-6.0); HEMATOCRIT 39 % (33-45); HEMOGLOBIN 12.6 g/dL (11.5-14.8); LYMPHOCYTES % (AUTO) 31.1 % (20.0-44.0); MEAN CORPUSCULAR HEMOGLOBIN 30 PG (26.0-33.0); MEAN CORPUSCULAR HGB CONC 32 g/dl (31.0-36.0); MEAN CORPUSCULAR VOLUME 94 fL (82-100); MONOCYTES # (AUTO) 0.5 /CMM (0.1-1.30); MONOCYTES % (AUTO) 7.2 % (2.0-12.0); NEUTROPHILS # (AUTO) 3.4 /CMM (1.8-8.9); NEUTROPHILS % (AUTO) 53.3 % (43.0-81.0); PLATELET COUNT (AUTO) 208 /CMM (150-450); RDW COEFFICIENT OF VARIATION 13.8 (11.5-15.0); RED BLOOD CELL COUNT(AUTO) 4.15 MIL/uL (4.0-5.2); WHITE BLOOD COUNT (AUTO) 6.4 K/uL (4.3-11.0)
[2017-04-26 04:23] LABS: CALCIUM, SERUM 8.4 mg/dL (8.5-10.1); CARBON DIOXIDE 28 mmol/L (21-32); CHLORIDE 108 mmol/L (98-107); CREATININE 0.9 mg/dL (0.6-1.3); GLUCOSE 111 mg/dL (74-106); POTASSIUM 4.2 mmol/L (3.5-5.1); SODIUM SERUM 142 mmol/L (136-145); UREA NITROGEN, BLOOD 20 mg/dL (7-18)
--- NOTE | 2017-04-26 04:24 | NUR ---
medicated patient as ordered by Dr Ordoñez.
[2017-04-26 04:25] LABS: INR 0.99 (0.87-1.13); PROTHROMBIN TIME 10.6 SECS (9.5-12.7)
--- NOTE | 2017-04-26 04:25 | NUR ---
collected urine via clean catch, called lab for flower picker.
[2017-04-26 04:29] LABS: ALANINE AMINOTRANSFERASE 14 U/L (12-78); ALBUMIN 2.9 g/dL (3.4-5.0); ALKALINE PHOSPHATASE 73 U/L (46-116); ASPARTATE AMINOTRANSFERASE 10 U/L (15-37); BILIRUBIN,DIRECT 0.1 mg/dL (0.0-0.2); BILIRUBIN,TOTAL 0.2 mg/dL (0.2-1.0); LIPASE 144 U/L (73-393); TOTAL PROTEIN, SERUM 6.2 g/dL (6.4-8.2)
[2017-04-26 04:31] LABS: TROPONIN I < 0.017 ng/mL (0.00-0.056)
--- NOTE | 2017-04-26 04:52 | NUR ---
patient to ct.
[2017-04-26 05:07] LABS: APPEARANCE,URINE SL CLOUDY (CLEAR); BILIRUBIN,URINE NEGATIVE (NEGATIVE); BLOOD, URINE TRACE-INTA Ery/uL (NEGATIVE); COLOR,URINE YELLOW (YELLOW); KETONES,URINE NEGATIVE (NEGATIVE); LEUKOCYTE ESTERASE ,URINE 2+ (NEGATIVE); NITRITE, URINE NEGATIVE (NEGATIVE); PROTEIN,URINE NEGATIVE (NEGATIVE); UGLUCOSE NEGATIVE (NEGATIVE); UROBILINOGEN,URINE 0.2 EU/dL (0.2)
[2017-04-26 05:31] LABS: BACTERIA,URINE Rare /HPF (None Seen); SQUAMOUS EPITHELIAL CELL,UR Moderate /HPF (None Seen)
[2017-04-26] MEDS ORDERED: CEFTRIAXONE 1 G VIAL ONE (05:48)
[2017-04-26] MEDS ORDERED: CEFTRIAXONE 1GM BAG (ER ONLY) 1 GM/50 ML PIGGYBACK IV ONE (06:00)
--- NOTE | 2017-04-26 06:32 | NUR ---
Report given to Rancho SYKES for medsurg admission and manjeet.
--- NOTE | 2017-04-26 06:33 | NUR ---
Transferred patient to [facility] floor room 205-1, no incident noted.
[2017-04-26] MEDS ORDERED: CRAN400T4 PO (06:43)
[2017-04-26] MEDS ORDERED: OLOP5DRO EACHEYE (06:43)
[2017-04-26] MEDS ORDERED: DOCU-25 PO (06:43)
[2017-04-26] MEDS ORDERED: MELO15TA13 PO (06:43)
[2017-04-26] MEDS ORDERED: METO2.5T2 PO (06:43)
[2017-04-26] MEDS ORDERED: OXYB10TA PO (06:43)
[2017-04-26] MEDS ORDERED: MAGNESIUM HYDROXIDE 30 ML UDC PO PRN (07:30)
[2017-04-26] MEDS ORDERED: MORPHINE SULFATE INJ 2 MG/ML DISP.SYRIN IV PRN (07:30)
[2017-04-26] MEDS ORDERED: ONDANSETRON HCL/PF 4 MG/2 ML VIAL IVP PRN (07:30)
--- NOTE | 2017-04-26 07:30 | NUR ---
MS RN NOTES ADMITTED THIS PAT FROM ER, FOR ABDOMINAL PAIN. DX IS UTI BY DR. SANTOS, ISELAO X 3, ON RA, NOT IN ANY DISTRESS, DENIES PAIN AT THIS TIME. RT AC #20 FLUSHES WELL, SITE CLEAR. BED REST FOR NOW. SKIN INTACT. ON CARDIAC DIET. UNIT ORIENTATION DONE AND USE OF CALL LIGHT. SAFETY MEASURES IN PLACE. WILL CONT TO MONITOR.
[2017-04-26 08:00] VITALS: BP 152/77
[2017-04-26] MEDS ORDERED: MELOXICAM PO SCH (09:00)
[2017-04-26] MEDS ORDERED: Medication Not On Formulary EA (Oxybutynin Chloride (Oxybutynin Chloride Er) 1 TAB) PO SCH (09:00)
[2017-04-26] MEDS ORDERED: [UNRECOGNIZED DRUG - OTHER] PO SCH (09:00)
[2017-04-26] MEDS ORDERED: ALBUTEROL SULFATE 8 GM HFA.AER.AD IH PRN (09:00)
[2017-04-26] MEDS ORDERED: CEFTRIAXONE 1 G in IV D5W 50 ML IV SCH (09:00)
[2017-04-26] MEDS ORDERED: CALCIUM PO SCH (09:00)
[2017-04-26] MEDS ORDERED: CRANBERRY FRUIT PO SCH (09:00)
[2017-04-26] MEDS: OLOPATADINE HCL 0.1% OPHTH BOTTLE EACHEYE SCH ×2 (09:20→16:47)
[2017-04-26] MEDS: FLUTICASONE PROPIONATE 16 GM BOTTLE NS SCH (09:20)
[2017-04-26] MEDS: FUROSEMIDE 40 MG TABLET PO SCH (09:21)
[2017-04-26] MEDS: OXYBUTYNIN CHLORIDE 5 MG TABLET PO SCH ×2 (09:21→16:47)
[2017-04-26] MEDS: POLYVINYL ALCOHOL 15 ML BOTTLE EACHEYE SCH (09:21)
[2017-04-26] MEDS: PANTOPRAZOLE 40 MG TABLET.DR PO SCH (09:21)
[2017-04-26] MEDS: LEVOTHYROXINE SODIUM 100 MCG TABLET PO SCH (09:21)
[2017-04-26] MEDS: CARBIDOPA/LEVODOPA 25/100 MG 1 UDTAB PO SCH ×3 (09:22→16:47)
[2017-04-26] MEDS: ASPIRIN EC 81 MG TABLET.DR PO SCH (09:22)
[2017-04-26] MEDS: DOCUSATE SODIUM 100 MG CAPSULE PO SCH (09:22)
[2017-04-26] MEDS: MELOXICAM 7.5 MG TABLET PO SCH (09:22)
[2017-04-26] MEDS: POTASSIUM CHLORIDE 20 MEQ TAB.PRT.SR PO SCH (09:22)
[2017-04-26] MEDS: METOLAZONE 2.5 MG TABLET PO SCH (09:22)
[2017-04-26] MEDS: TOPIRAMATE 25 MG TABLET PO SCH ×2 (09:24→16:47)
[2017-04-26] MEDS: PRIMIDONE 50 MG TABLET PO SCH ×2 (09:24→16:47)
--- NOTE | 2017-04-26 09:30 | NUR ---
MS RN NOTES PATIENT SEEN BY DR. SANTOS. STARTED IVF.
[2017-04-26] MEDS ORDERED: ALBUTEROL FS 2.5 MG/0.5 ML VIAL.NEB NEB PRN (10:30)
[2017-04-26] MEDS: IV D5/ 0.9% NACL 1,000 ML IV SCH ×2 (12:13→22:20)
[2017-04-26 16:00] VITALS: BP 130/71
[2017-04-26 18:00] VITALS: BP 130/71
--- NOTE | 2017-04-26 18:31 | NUR ---
MS RN CLOSING NOTES PT RESTING COMFORTABLY IN BED, AAO X 3, PERIODS OF CONFUSION, ON RA, NOT IN ANY DISTRESS, DENIES PAIN AT THIS TIME. RT AC #20 WITH D5NS AT 75 ML/HR, SITE CLEAR. BED REST FOR NOW. SKIN INTACT. ON CARDIAC DIET. ALL NEEDS MET. NO OTHER SIGNIFICANT CHANGE IN CONDITION. USE OF CALL LIGHT. SAFETY MEASURES IN PLACE. ALL NEEDS MET. PM CARE DONE. WILL ENDORSE TO NEXT SHIFT FOR TESHA.
--- NOTE | 2017-04-26 19:30 | NUR ---
MS RN NOTE RECEIVED PATIENT AWAKE IN BED. NO RESPIRATORY DISTRESS OR SOB NOTED. NO S/S OF PAIN OR DISCOMFORT NOTED. IV SITE TO RAC INTACT WITH FLUIDS RUNNING ORDERED. BED LOCKED AND IN LOWEST POSITION. SIDE RAILS UP, CALL LIGHT WITHIN REACH. WILL CONTINUE TO MONITOR.
[2017-04-26 20:00] VITALS: BP 104/72
[2017-04-26 20:48] VITALS: BP 104/72
[2017-04-26] MEDS: ESCITALOPRAM OXALATE (10 MG) 10 MG TABLET PO SCH (21:33)
[2017-04-26] MEDS: TRAZODONE 50 MG TABLET PO SCH (21:34)
[2017-04-26] MEDS: LATANOPROST EYE DROP 0.005% 2.5 ML BOTTLE EACHEYE SCH (21:35)
--- NOTE | 2017-04-27 06:08 | NUR ---
MS RN NOTE PATIENT STABLE. NO RESPIRATORY DISTRESS OR SOB NOTED. NO S/S OF PAIN OR DISCOMFORT. IV FLUIDS RUNNING ORDERED. IV SITE INTACT WITH NO REDNESS OR INFILTRATION.ALL NEEDS MET AND ATTENDED TO. WILL ENDORSE TO DAY SHIFT FOR TESHA.
[2017-04-27] MEDS: CEFTRIAXONE 1 G in IV D5W 50 ML IV SCH (06:31)
[2017-04-27] MEDS: LEVOTHYROXINE SODIUM 100 MCG TABLET PO SCH (06:31)
[2017-04-27] MEDS: PANTOPRAZOLE 40 MG TABLET.DR PO SCH (06:31)
[2017-04-27 06:57] LABS: BASOPHILS % (AUTO) 0.4 % (0.0-2.0); EOSINOPHILS # (AUTO) 0.5 /CMM (0.0-0.7); EOSINOPHILS % (AUTO) 9.7 % (0.0-6.0); HEMATOCRIT 38 % (33-45); HEMOGLOBIN 12.5 g/dL (11.5-14.8); LYMPHOCYTES # (AUTO) 1.8 /CMM (0.8-4.8); LYMPHOCYTES % (AUTO) 34.7 % (20.0-44.0); MEAN CORPUSCULAR HEMOGLOBIN 31 PG (26.0-33.0); MEAN CORPUSCULAR HGB CONC 33 g/dl (31.0-36.0); MEAN CORPUSCULAR VOLUME 94 fL (82-100); MONOCYTES # (AUTO) 0.4 /CMM (0.1-1.30); MONOCYTES % (AUTO) 8.3 % (2.0-12.0); NEUTROPHILS # (AUTO) 2.4 /CMM (1.8-8.9); NEUTROPHILS % (AUTO) 46.9 % (43.0-81.0); PLATELET COUNT (AUTO) 215 /CMM (150-450); RDW COEFFICIENT OF VARIATION 14.1 (11.5-15.0); RED BLOOD CELL COUNT(AUTO) 4.07 MIL/uL (4.0-5.2); WHITE BLOOD COUNT (AUTO) 5.2 K/uL (4.3-11.0)
--- NOTE | 2017-04-27 07:10 | NUR ---
RN NOTES PT IS IN BED, SLEEPING COMFORTABLY. PT ON RA, RESPIRATIONS ARE EVEN AND UNLABORED. IV ON RAC INTACT AND PATENT, RUNNING D5NS @ 75ML/HR. SAFETY MEASURES ARE IN PLACE, CALL LIGHT IS IN REACH. WILL CONTINUE TO MONITOR.
[2017-04-27 07:17] LABS: CHOLESTEROL 140 mg/dL (<200); HDL CHOLESTEROL 43 mg/dL (40-60); LDL 84 mg/dL (0-99); THYROID STIMULATING HORMONE 1.216 uIU/mL (0.358-3.74); TRIGLYCERIDES 80 mg/dL (30-150)
[2017-04-27 07:26] LABS: ALANINE AMINOTRANSFERASE 11 U/L (12-78); ALBUMIN 2.7 g/dL (3.4-5.0); ALKALINE PHOSPHATASE 70 U/L (46-116); ASPARTATE AMINOTRANSFERASE 10 U/L (15-37); BILIRUBIN,TOTAL 0.2 mg/dL (0.2-1.0); CALCIUM, SERUM 8.2 mg/dL (8.5-10.1); CARBON DIOXIDE 29 mmol/L (21-32); CHLORIDE 106 mmol/L (98-107); GLUCOSE 93 mg/dL (74-106); MAGNESIUM 1.9 mg/dL (1.8-2.4); PHOSPHORUS 4.3 mg/dL (2.5-4.9); POTASSIUM 4.2 mmol/L (3.5-5.1); SODIUM SERUM 141 mmol/L (136-145); UREA NITROGEN, BLOOD 19 mg/dL (7-18)
[2017-04-27 08:00] VITALS: BP 116/66
[2017-04-27] MEDS: FLUTICASONE PROPIONATE 16 GM BOTTLE NS SCH (08:22)
[2017-04-27] MEDS: ASPIRIN EC 81 MG TABLET.DR PO SCH (08:22)
[2017-04-27] MEDS: POLYVINYL ALCOHOL 15 ML BOTTLE EACHEYE SCH (08:22)
[2017-04-27] MEDS: OLOPATADINE HCL 0.1% OPHTH BOTTLE EACHEYE SCH ×2 (08:22→16:09)
[2017-04-27] MEDS: OXYBUTYNIN CHLORIDE 5 MG TABLET PO SCH ×2 (08:23→16:08)
[2017-04-27] MEDS: PRIMIDONE 50 MG TABLET PO SCH ×2 (08:23→16:08)
[2017-04-27] MEDS: TOPIRAMATE 25 MG TABLET PO SCH ×2 (08:23→16:08)
[2017-04-27] MEDS: DOCUSATE SODIUM 100 MG CAPSULE PO SCH (08:23)
[2017-04-27] MEDS: MELOXICAM 7.5 MG TABLET PO SCH (08:23)
[2017-04-27] MEDS: CARBIDOPA/LEVODOPA 25/100 MG 1 UDTAB PO SCH ×3 (08:23→16:08)
[2017-04-27] MEDS: METOLAZONE 2.5 MG TABLET PO SCH (08:24)
[2017-04-27] MEDS: ACETAMINOPHEN 325 MG TABLET PO PRN (08:31)
[2017-04-27] MEDS ORDERED: Z GUARD REMEDY 2 OZ OINT TP PRN (11:00)
[2017-04-27 16:00] VITALS: BP 103/52
--- NOTE | 2017-04-27 19:09 | NUR ---
RN NOTES PT IS IN BED, RESTING COMFORTABLY. PT ON RA, RESPIRATIONS ARE EVEN AND UNLABORED. IV ON RAC, INTACT AND PATENT. SAFETY MEASURES ARE IN PLACE, CALL LIGHT IS IN REACH. WILL ENDORSE TO WELFARE WORKER RN FOR CONTINUITY OF CARE.
--- NOTE | 2017-04-27 19:50 | NUR ---
MS RN NOTED: PATIENT RESTING IN BED, NO ACUTE DISTRESS NOTED. BREATHING EVEN AND UNLABORED, NO SOB NOTED. IV TO RAC IN PLACE. ISOLATION PRECAUTION OBSERVED. BED LOCKED AND IN LOWEST POSITION, CALL LIGHT IN REACH, WILL CONTINUE TO MONITOR.
[2017-04-27 20:00] VITALS: BP 115/54
[2017-04-27] MEDS: TRAZODONE 50 MG TABLET PO SCH (22:19)
[2017-04-27] MEDS: LATANOPROST EYE DROP 0.005% 2.5 ML BOTTLE EACHEYE SCH (22:19)
[2017-04-27] MEDS: MUPIROCIN OINT 2% 22 GM TUBE SCH (22:19)
[2017-04-27] MEDS: ESCITALOPRAM OXALATE (10 MG) 10 MG TABLET PO SCH (22:20)
--- NOTE | 2017-04-28 02:30 | NUR ---
MS RN NOTE: PATIENT SLEEPING IN BED, NO ACUTE DISTRESS NOTED. BREATHING EVEN AND UNLABORED, NO SOB NOTED. ISOLATION PRECAUTIONS OBSERVED. BED LOCKED AND IN LOWEST POSITION, CALL LIGHT IN REACH. WILL CONTINUE TO MONITOR.
[2017-04-28] MEDS: CEFTRIAXONE 1 G in IV D5W 50 ML IV SCH (05:47)
--- NOTE | 2017-04-28 06:05 | NUR ---
MS RN NOTED: PATIENT RESTING IN BED, NO ACUTE DISTRESS NOTED. BREATHING EVEN AND UNLABORED, NO SOB NOTED. IV TO RAC IN PLACE. ISOLATION PRECAUTION OBSERVED. BED LOCKED AND IN LOWEST POSITION, CALL LIGHT IN REACH. WILL ENDORSE TO DAY NURSE TO CONTINUE WITH PLAN OF CARE.
--- NOTE | 2017-04-28 07:30 | NUR ---
MS RN OPENING RECEIVED PATIENT A/OX2 AWARE OF PERSON, TIME. UPDATED PATIENT ON CARE PLAN AND MEDICATIONS. PATIENT DENIES SOB, DIFFICULTY BREATHING OR PAIN AT THIS TIME. ALL NEEDS IN REACH, BED LOWERED AND LOCKED, RAILS UPX3 FOR SAFETY AND WILL ROUND Q2H OR LESS PER NEEDS.
[2017-04-28 08:00] VITALS: BP 126/54
[2017-04-28] MEDS: POLYVINYL ALCOHOL 15 ML BOTTLE EACHEYE SCH (08:10)
[2017-04-28] MEDS: FLUTICASONE PROPIONATE 16 GM BOTTLE NS SCH (08:10)
[2017-04-28] MEDS: PRIMIDONE 50 MG TABLET PO SCH (08:11)
[2017-04-28] MEDS: OXYBUTYNIN CHLORIDE 5 MG TABLET PO SCH (08:11)
[2017-04-28] MEDS: MELOXICAM 7.5 MG TABLET PO SCH (08:11)
[2017-04-28] MEDS: TOPIRAMATE 25 MG TABLET PO SCH (08:11)
[2017-04-28] MEDS: OLOPATADINE HCL 0.1% OPHTH BOTTLE EACHEYE SCH (08:11)
[2017-04-28] MEDS: LEVOTHYROXINE SODIUM 100 MCG TABLET PO SCH (08:11)
[2017-04-28] MEDS: CARBIDOPA/LEVODOPA 25/100 MG 1 UDTAB PO SCH (08:11)
[2017-04-28] MEDS: METOLAZONE 2.5 MG TABLET PO SCH (08:11)
[2017-04-28] MEDS: ASPIRIN EC 81 MG TABLET.DR PO SCH (08:11)
[2017-04-28] MEDS: DOCUSATE SODIUM 100 MG CAPSULE PO SCH (08:11)
[2017-04-28] MEDS: PANTOPRAZOLE 40 MG TABLET.DR PO SCH (08:11)
[2017-04-28] MEDS: FUROSEMIDE 40 MG TABLET PO SCH (08:13)
[2017-04-28] MEDS: ACETAMINOPHEN 325 MG TABLET PO PRN (08:13)
[2017-04-28] MEDS: POTASSIUM CHLORIDE 20 MEQ TAB.PRT.SR PO SCH (08:13)
[2017-04-28] MEDS: MUPIROCIN OINT 2% 22 GM TUBE SCH (08:19)
--- NOTE | 2017-04-28 08:30 | NUR ---
MS RN NOTES DR SANTOS AT BEDSIDE.
--- NOTE | 2017-04-28 08:57 | NUR ---
MS RN NOTES MESSAGE TO JT VANESSA FOR UPDATE ON PATIENT SCHEDULING; CURRENTLY NPO AT THIS TIME
--- NOTE | 2017-04-28 10:40 | NUR ---
MS LOANS OFFICER PATIENT STABLE FOR DC. IV REMOVED PRESSURE AND DRESSING APPLIED NO BLEEDING NOTED.PATIENT UPDATED ON DC MATERIAL, MEDICATIONS HOWEVER PATIENT CONFUSED AND FORGETFUL. SPOKE WITH PATIENT SON KRISTEL AND UPDATED ON DISCHARGE AND CARE PLAN AND STATED UNDERSTANDING. ALL BELONGINGS LEFT WITH PATIENT AND DC PAPERWORK GIVEN TO TRANSPORT RETIREMENT SET UP. CALLED [facility] AND CONFIRMED PATIENT IS TO BE DC'D BACK AND THEY ARE AWARE AND WAITING FOR PATIENT. PATIENT ASSISTED TO WHEELCHAIR AND TAKEN TO [employer] IN STABLE CONDITION NO COMPLICATIONS NOTED.
== END 2017-04-28 10:40 | DRG 690 ==
LOC: ER 03:50 → MEDSG2 06:25
PROVIDERS: ADMIT Legal Medicine; ATTEND Legal Medicine
DX: N39.0 Urinary tract infection, site not specified (principal); G20 Parkinson's disease; F02.80 Dementia in other diseases classified elsewhere, unspecified severity, without behavioral disturbance, psychotic disturbance, mood disturbance, and anxiety; I10 Essential (primary) hypertension; E03.9 Hypothyroidism, unspecified; J44.9 Chronic obstructive pulmonary disease, unspecified; K21.9 Gastro-esophageal reflux disease without esophagitis; R10.9 Unspecified abdominal pain; R53.1 Weakness; B96.20 Unspecified Escherichia coli [E. coli] as the cause of diseases classified elsewhere; K59.00 Constipation, unspecified
CPT/HCPCS: 36415; 71010-TC; 80048-TC; 80053-TC; 80061-TC; 80076-TC; 81000-TC; 83690-TC; 83735-TC; 84100-TC; 84443-TC; 84484-TC; 85025-TC; 85730-TC; 87081-TC; 87086-TC; 87186-TC; 97116-TC; 97530-TC; J0696; J2405; J3490; J7040; J7042; J7060

== ENCOUNTER 2017-05-10 06:22 | Emergency (ER) | payer MEDICARE, OTHER ==
[~2017-05-10] VITALS: Ht 162.6 cm; Wt 90.7 kg
[~2017-05-10 06:22] MED LIST changes: +CRAN400T4 PO; +DOCU-25 PO; +MELO15TA13 PO; +METO2.5T2 PO; +OLOP5DRO EACHEYE; +OXYB10TA PO
--- NOTE | 2017-05-10 06:49 | NUR ---
PT BIB [facility] C/O HEADACHE, NONPRODUCTIVE COUGH, AND SORE THROAT X3 DAYS. RESP EVEN UNLABORED. SKIN WARM NONDIAPHORETIC. VSS. NAD NOTED. DENIES N/V/D. IN ER BED 07.
[2017-05-10 07:03] LABS: BASOPHILS % (AUTO) 0.6 % (0.0-2.0); EOSINOPHILS # (AUTO) 0.5 /CMM (0.0-0.7); HEMATOCRIT 37 % (33-45); HEMOGLOBIN 12.2 g/dL (11.5-14.8); LYMPHOCYTES # (AUTO) 1.4 /CMM (0.8-4.8); LYMPHOCYTES % (AUTO) 23.4 % (20.0-44.0); MEAN CORPUSCULAR HEMOGLOBIN 31 PG (26.0-33.0); MEAN CORPUSCULAR HGB CONC 33 g/dl (31.0-36.0); MEAN CORPUSCULAR VOLUME 93 fL (82-100); MONOCYTES # (AUTO) 0.4 /CMM (0.1-1.30); NEUTROPHILS # (AUTO) 3.6 /CMM (1.8-8.9); PLATELET COUNT (AUTO) 218 /CMM (150-450); RDW COEFFICIENT OF VARIATION 13.8 (11.5-15.0); RED BLOOD CELL COUNT(AUTO) 3.97 MIL/uL (4.0-5.2)
[2017-05-10 07:12] LABS: CALCIUM, SERUM 8.5 mg/dL (8.5-10.1); CARBON DIOXIDE 27 mmol/L (21-32); CHLORIDE 109 mmol/L (98-107); GLUCOSE 99 mg/dL (74-106); POTASSIUM 4.3 mmol/L (3.5-5.1); SODIUM SERUM 142 mmol/L (136-145); UREA NITROGEN, BLOOD 13 mg/dL (7-18)
[2017-05-10 07:18] LABS: ALANINE AMINOTRANSFERASE 18 U/L (12-78); ALKALINE PHOSPHATASE 80 U/L (46-116); ASPARTATE AMINOTRANSFERASE 9 U/L (15-37); BILIRUBIN,DIRECT 0.1 mg/dL (0.0-0.2); BILIRUBIN,TOTAL 0.4 mg/dL (0.2-1.0); TOTAL PROTEIN, SERUM 6.4 g/dL (6.4-8.2)
--- NOTE | 2017-05-10 07:19 | NUR ---
resting quietly, NAD noted. report given to xiao martinez for TESHA.
[2017-05-10 07:20] LABS: TROPONIN I < 0.017 ng/mL (0.00-0.056)
--- NOTE | 2017-05-10 07:51 | NUR ---
Called [facility] for transport eta 1030 trip# [id number]
--- NOTE | 2017-05-10 09:07 | NUR ---
IV removed. Catheter intact and site benign. Pressure and 4x4 applied to site. No bleeding noted.Patient discharged to home via [facility] in stable condition. Written and verbal after care instructions given. Patient verbalizes understanding of instruction.
[2017-05-10 09:08] VITALS: BP 140/69
== END 2017-05-10 09:09 | disposition home or self-care (01) ==
LOC: ER 06:24
DX: J06.9 Acute upper respiratory infection, unspecified (principal); E03.9 Hypothyroidism, unspecified; F03.90 Unspecified dementia, unspecified severity, without behavioral disturbance, psychotic disturbance, mood disturbance, and anxiety; F32.9 Major depressive disorder, single episode, unspecified; G20 Parkinson's disease; F41.9 Anxiety disorder, unspecified; H40.9 Unspecified glaucoma; I10 Essential (primary) hypertension; J44.9 Chronic obstructive pulmonary disease, unspecified; K21.9 Gastro-esophageal reflux disease without esophagitis; Z79.82 Long term (current) use of aspirin; Z88.8 Allergy status to other drugs, medicaments and biological substances; Z88.5 Allergy status to narcotic agent
CPT/HCPCS: 36415; 71010; 80048; 80076; 83605; 84484; 85025; 87040 ×2; 87804; 93005; 99285; A4606; 87400; Z7610

== ENCOUNTER 2017-08-18 19:29 | Inpatient (IN) | payer MEDICARE, OTHER ==
[~2017-08-18] VITALS: Ht 162.6 cm; Wt 78.9 kg
[~2017-08-18 19:29] MED LIST changes: -ALBU8.5H2 IH; +ALBU8.5H8 IH; +ASPI-1152 PO; -ASPI-991 PO; +DOCU-141 PO; -DOCU-25 PO; +MELO-105 PO; -MELO-270 PO; -TOPI50TA21 PO; +TOPI50TA24 PO
--- NOTE | 2017-08-18 19:50 | NUR ---
TO BED 7 A 86 YO FEMALE PT ABDIRAHMAN FROM [facility] FOR ABD PAIN X 1 MONTH, RIGHT HIP AND GROIN REDNESS X 2 DAYS. VSS. NAD NOTED. NONDIAPHORETIC. PLACED ON MONITOR. GOWNED. COMFORT MEASURES RENDERED.
--- NOTE | 2017-08-18 19:52 | NUR ---
DR LYNN AT BEDSIDE TO EVALUATE PATIENT.
[2017-08-18] MEDS ORDERED: ONDANSETRON HCL/PF 4 MG/2 ML VIAL IVP ONE (20:00)
--- NOTE | 2017-08-18 20:00 | NUR ---
STARTED A SALINE LOCK ON THE LEFT HAND G20, BLOOD DRAWN AND SENT TO LAB.
[2017-08-18] MEDS ORDERED: ONDANSETRON HCL/PF 4 MG/2 ML VIAL ONE (20:04)
[2017-08-18 20:07] LABS: BASOPHILS # (AUTO) 0.1 /CMM (0.0-0.2); BASOPHILS % (AUTO) 1.7 % (0.0-2.0); EOSINOPHILS # (AUTO) 0.3 /CMM (0.0-0.7); EOSINOPHILS % (AUTO) 6.1 % (0.0-6.0); HEMATOCRIT 35 % (33-45); HEMOGLOBIN 12.5 g/dL (11.5-14.8); LYMPHOCYTES # (AUTO) 2.2 /CMM (0.8-4.8); LYMPHOCYTES % (AUTO) 42.4 % (20.0-44.0); MEAN CORPUSCULAR HEMOGLOBIN 32 PG (26.0-33.0); MEAN CORPUSCULAR HGB CONC 36 g/dl (31.0-36.0); MEAN CORPUSCULAR VOLUME 91 fL (82-100); MONOCYTES # (AUTO) 0.4 /CMM (0.1-1.30); MONOCYTES % (AUTO) 6.9 % (2.0-12.0); NEUTROPHILS # (AUTO) 2.3 /CMM (1.8-8.9); NEUTROPHILS % (AUTO) 42.9 % (43.0-81.0); PLATELET COUNT (AUTO) 214 /CMM (150-450); RDW COEFFICIENT OF VARIATION 12.5 (11.5-15.0); RED BLOOD CELL COUNT(AUTO) 3.88 MIL/uL (4.0-5.2); WHITE BLOOD COUNT (AUTO) 5.3 K/uL (4.3-11.0)
--- NOTE | 2017-08-18 20:08 | NUR ---
PATIENT TO RADIOLOGY.
[2017-08-18 20:19] LABS: CALCIUM, SERUM 8.8 mg/dL (8.5-10.1); CARBON DIOXIDE 26 mmol/L (21-32); CHLORIDE 106 mmol/L (98-107); CREATININE 0.8 mg/dL (0.6-1.3); GLUCOSE 96 mg/dL (74-106); POTASSIUM 4.7 mmol/L (3.5-5.1); SODIUM SERUM 137 mmol/L (136-145); UREA NITROGEN, BLOOD 19 mg/dL (7-18)
[2017-08-18 20:25] LABS: ALANINE AMINOTRANSFERASE < 6 U/L (12-78); ALBUMIN 2.8 g/dL (3.4-5.0); ALKALINE PHOSPHATASE 71 U/L (46-116); ASPARTATE AMINOTRANSFERASE 15 U/L (15-37); BILIRUBIN,TOTAL 0.3 mg/dL (0.2-1.0); LIPASE 85 U/L (73-393); TOTAL PROTEIN, SERUM 6.5 g/dL (6.4-8.2)
--- NOTE | 2017-08-18 20:28 | NUR ---
PATIENT BACK FROM RADIOLOGY.
--- NOTE | 2017-08-18 21:42 | NUR ---
CALLED , LEFT MESSAGE [employer]
[2017-08-18] MEDS ORDERED: CEFEPIME 1 GM in IV D5W 50 ML IV ONE (22:00)
--- NOTE | 2017-08-18 22:04 | NUR ---
MS 328-2
[2017-08-18 22:07] LABS: APPEARANCE,URINE SL CLOUDY (CLEAR); BILIRUBIN,URINE NEGATIVE (NEGATIVE); BLOOD, URINE NEGATIVE Ery/uL (NEGATIVE); COLOR,URINE YELLOW (YELLOW); KETONES,URINE NEGATIVE (NEGATIVE); LEUKOCYTE ESTERASE ,URINE 3+ (NEGATIVE); NITRITE, URINE POSITIVE (NEGATIVE); PROTEIN,URINE NEGATIVE (NEGATIVE); UGLUCOSE NEGATIVE (NEGATIVE); UROBILINOGEN,URINE 0.2 EU/dL (0.2)
[2017-08-18 22:19] LABS: BACTERIA,URINE Many /HPF (None Seen); RBC,URINE 0-2 /HPF (0-2); SQUAMOUS EPITHELIAL CELL,UR Rare /HPF (None Seen); WBC,URINE TOO NUMEROUS TO COUN /HPF (0-3)
[2017-08-18] MEDS ORDERED: CEFEPIME 1 GM VIAL ONE (22:21)
--- NOTE | 2017-08-18 22:25 | NUR ---
LAB AT BEDSIDE FOR BLOOD CX DRAW
--- NOTE | 2017-08-18 22:26 | NUR ---
REPORT GIVEN TO ANYA SYKES FOR ADMISSION AND TESHA.
--- NOTE | 2017-08-18 22:32 | NUR ---
TRANSFERRED PATIENT TO MS BED. NO INCIDENT NOTED.
[2017-08-18 22:40] VITALS: BP 102/49
--- NOTE | 2017-08-18 22:40 | NUR ---
STRIPPER SHOVEL OPERATOR/INITIAL NOTES ADMIT PT FROM ER VIA [facility] ACCOMPANIED BY ER NURSE AND TECH. DX OF PNA. PT IS ALERT ORIENTED X3 ABLE TO SPEAK AND UNDERSTOOD MONGOLIAN. FORGET FUL AT TIME. WITH BAUGH TO GRAVITY. HEPLOCK ON HER LEFT HAND PATENT AND INTACT. ORIENTED WHERE SHE AT AND HOW TO USED THE CALL LIGHT SYSTEM. KEPT HER WARM AND COMFORTABLE AT ALL TIMES. WILL CONTINUE MONITORING.
[2017-08-18 22:45] VITALS: BP 102/45
[2017-08-18] MEDS ORDERED: ACETAMINOPHEN 325 MG TABLET PO PRN (23:30)
[2017-08-18] MEDS ORDERED: CEFTRIAXONE 1 G in IV D5W 50 ML IV SCH (23:30)
[2017-08-18] MEDS ORDERED: ONDANSETRON HCL/PF 4 MG/2 ML VIAL IV PRN (23:30)
[2017-08-18] MEDS ORDERED: AZITHROMYCIN 250 MG TABLET PO SCH (23:30)
[2017-08-18] MEDS ORDERED: CEFTRIAXONE 1 G VIAL ONE (23:37)
[2017-08-18] MEDS: IV D5/ 0.9% NACL 1,000 ML IV PRN (23:48)
--- NOTE | 2017-08-19 | NUR ---
RESIDENT HALL DIRECTOR/NOTES IVF D5NS STARTED AT 75ML/HR ON HER LEFT HAND AND ROCEPHIN ALSO HUNG BY ANOTHER NURSE ORDERED. KEPT HER WARM AND COMFORTABLE AT ALL TIMES. WILL CONTINUE TO MONITOR.
[2017-08-19] MEDS ORDERED: MORPHINE SULFATE INJ 4 MG/ML DISP.SYRIN IV PRN ×2 (07:30)
--- NOTE | 2017-08-19 07:42 | NUR ---
MS PEANUT VENDOR CLOSING NOTES PT AWAKE AT THIS TIME WATCHING TV , DENIES ANY PAIN OR ANY DISCOMFORT. STABLE ANNIE THE NIGHT NO N/V NOTED. NO SIGNS OF ANY ACUTE DISTRESS NOTED. BAUGH DRAINING WELL. AND IVF STILL INFUSING. KEPT HER WARM AND COMFORTABLE AT ALL TIMES. ENDORSE TO AM NURSE FOR CONTINUITY OF CARE. PLACE CALL LIGHT AT REACH.
[2017-08-19 07:53] LABS: BASOPHILS % (AUTO) 0.9 % (0.0-2.0); EOSINOPHILS # (AUTO) 0.3 /CMM (0.0-0.7); EOSINOPHILS % (AUTO) 6.6 % (0.0-6.0); HEMATOCRIT 34 % (33-45); HEMOGLOBIN 11.9 g/dL (11.5-14.8); LYMPHOCYTES # (AUTO) 1.4 /CMM (0.8-4.8); LYMPHOCYTES % (AUTO) 30.1 % (20.0-44.0); MEAN CORPUSCULAR HEMOGLOBIN 32 PG (26.0-33.0); MEAN CORPUSCULAR HGB CONC 35 g/dl (31.0-36.0); MEAN CORPUSCULAR VOLUME 94 fL (82-100); MONOCYTES # (AUTO) 0.4 /CMM (0.1-1.30); MONOCYTES % (AUTO) 8.3 % (2.0-12.0); NEUTROPHILS # (AUTO) 2.5 /CMM (1.8-8.9); NEUTROPHILS % (AUTO) 54.1 % (43.0-81.0); PLATELET COUNT (AUTO) 191 /CMM (150-450); RED BLOOD CELL COUNT(AUTO) 3.66 MIL/uL (4.0-5.2); WHITE BLOOD COUNT (AUTO) 4.6 K/uL (4.3-11.0)
[2017-08-19 08:00] VITALS: BP 128/67
[2017-08-19] MEDS ORDERED: MECL-102 PO (08:00)
[2017-08-19] MEDS ORDERED: TRIA80CR2 TP (08:00)
[2017-08-19] MEDS ORDERED: AZEL6DRO5 EACHEYE (08:00)
[2017-08-19] MEDS ORDERED: OLOP2.5D5 EACHEYE (08:00)
[2017-08-19] MEDS ORDERED: DEXT1CAP3 PO (08:00)
[2017-08-19] MEDS ORDERED: BISA10SU8 RC (08:00)
[2017-08-19] MEDS ORDERED: ACET-2117 PO (08:00)
[2017-08-19] MEDS ORDERED: CLOT15CR63 TP (08:00)
--- NOTE | 2017-08-19 08:00 | NUR ---
RN OPENING NOTES RECEIVED PATIENT COMFORTABLY IN BED WATCHING TV, VERBALLY RESPONSIVE. HOB ELAVATED. NO ACUTE DISTRESS NOTED. DENIED ANY PAIN. IV ACCESS PATENT AND INTACT. BAUGH CATHETER INTACT DRAINING WELL. SAFETY MEASURES IN PLACE. CALL LIGHT WITHIN REACH. WILL CONTINUE TO MONITOR ACCORDINGLY.
[2017-08-19 08:03] LABS: CALCIUM, SERUM 8.8 mg/dL (8.5-10.1); CARBON DIOXIDE 30 mmol/L (21-32); CHLORIDE 107 mmol/L (98-107); CREATININE 0.9 mg/dL (0.6-1.3); GLUCOSE 103 mg/dL (74-106); POTASSIUM 4.2 mmol/L (3.5-5.1); SODIUM SERUM 141 mmol/L (136-145); UREA NITROGEN, BLOOD 14 mg/dL (7-18)
[2017-08-19] MEDS: PANTOPRAZOLE 40 MG TABLET.DR PO SCH (08:39)
[2017-08-19] MEDS ORDERED: Medication Not On Formulary EA (Escitalopram Oxalate (Lexapro) 20 MG) PO SCH (10:00)
[2017-08-19] MEDS ORDERED: MECLIZINE HCL 25 MG TABLET PO PRN (10:00)
[2017-08-19] MEDS ORDERED: MAGNESIUM HYDROXIDE 30 ML UDC PO PRN (10:00)
[2017-08-19] MEDS ORDERED: BISACODYL SUPP (10 MG) 10 MG/SUPP.RECT SUPP.RECT RC PRN (10:00)
[2017-08-19] MEDS ORDERED: Medication Not On Formulary EA (Dextromethorphan Hbr/Quinidine (Nuedexta 20-10 Mg Capsul PO SCH (10:00)
[2017-08-19] MEDS: DOCUSATE SODIUM 100 MG CAPSULE PO SCH (10:54)
[2017-08-19] MEDS: ASPIRIN EC 81 MG TABLET.DR PO SCH (10:54)
[2017-08-19] MEDS: CARBIDOPA/LEVODOPA 25/100 MG 1 UDTAB PO SCH ×3 (10:55→17:56)
[2017-08-19] MEDS: MELOXICAM 7.5 MG TABLET PO SCH (10:55)
[2017-08-19] MEDS: PRIMIDONE 50 MG TABLET PO SCH ×2 (10:56→17:56)
[2017-08-19] MEDS: LEVOTHYROXINE SODIUM 100 MCG TABLET PO SCH (10:57)
[2017-08-19] MEDS: ENOXAPARIN SODIUM 30 MG/0.3 ML DISP.SYRIN SQ SCH (10:58)
[2017-08-19] MEDS: FLUTICASONE PROPIONATE 16 GM BOTTLE NS SCH (11:50)
[2017-08-19] MEDS: OXYBUTYNIN CHLORIDE ER 5 MG TAB PO SCH (11:51)
[2017-08-19 16:00] VITALS: BP 140/72
[2017-08-19] MEDS: IV D5/ 0.9% NACL 1,000 ML IV PRN (16:03)
[2017-08-19] MEDS: OLOPATADINE HCL 0.1% OPHTH BOTTLE EACHEYE SCH (17:57)
--- NOTE | 2017-08-19 18:15 | NUR ---
Patient resides at [facility] [phone]. She is alert, she uses W/C mobility to go around assisted living facility. Patient requires limited assist with adl's. She plan to return to [facility] once discharge. Addendum: 08/19/17 at 1815 by EILEEN CULLEN RN Amended: Links added.
--- NOTE | 2017-08-19 18:30 | NUR ---
RN CLOSING NOTES PATIENT COMFORTABLY IN BED WATCHING TV, VERBALLY RESPONSIVE. HOB ELAVATED.NO SOB NOTED. NO ACUTE DISTRESS NOTED. DENIED ANY PAIN. IV ACCESS PATENT AND INTACT. BAUGH CATHETER INTACT AND DRAINING WELL. SAFETY MEASURES IN PLACE. DUE MEDICATIONS GIVEN, NO ASE NOTED. NEEDS ATTENDED. CALL LIGHT WITHIN REACH. WILL ENDORSE TO SHANK PIECE TACKER FOR CONTINUITY OF CARE.
--- NOTE | 2017-08-19 20:00 | NUR ---
MS DECALER INITIAL NOTES RECEIVED PT IN BED ON SITTING POSITION WITH SIDE RAILS UP . WATCHING TV AT THIS TIME.DENIES ANY PAIN OR ANY DISCOMFORT. IVF STILL INFUSING ON HER LEFT HAND PATENT AND INTACT. KEPT HER WARM AND COMFORTABLE AT ALL TIMES. BAUGH TO GRAVITY . PLACE CALL LIGHT AT REACH. WILL CONTINUE TO MONITOR.
[2017-08-19 20:19] VITALS: BP 116/55
[2017-08-19] MEDS: TRAZODONE 50 MG TABLET PO SCH (22:13)
[2017-08-19] MEDS: LATANOPROST EYE DROP 0.005% 2.5 ML BOTTLE EACHEYE SCH (22:13)
[2017-08-19] MEDS: AZITHROMYCIN 250 MG TABLET PO SCH (22:15)
[2017-08-19] MEDS: CEFTRIAXONE 1 G in IV D5W 50 ML IV SCH (23:27)
--- NOTE | 2017-08-20 07:00 | NUR ---
VOLTAGE INSPECTOR CLOSING NOTES PT AWAKE AND ALERT AFTER MORNING CARE DONE. STABLE ANNIE THE NIGHT AND SLEPT WELL. CALMED AND NO AGITATION NOTED. NO SOB NOTED. IV STILL INFUSING AND ALL DUE MEDS GIVEN. KEPT HER WARM AND COMFORTABLE AT ALL TIMES. BED IN LOW AND LOCK IN POSITION WITH SIDE RAILS X2 UP AND PLACE CALL LIGHT AT REACH. ENDORSE TO AM NURSE FOR CONTINUITY OF CARE.
--- NOTE | 2017-08-20 07:00 | NUR ---
RN OPENING NOTES RECEIVED PATIENT IN BED, ALERT, ORIENTED. NO SOB NOTED. NO ACUTE DISTRESS NOTED. IV ACCESS PATENT, INTACT AND INFUSING. BAUGH CATHETER INTACT DRAINING WELL, NO SEDIMENTS NOTED. SAFETY MEASURES IN PLACE. CALL LIGHT WITHIN REACH. WILL CONTINUE TO MONITOR ACCORDINGLY.
[2017-08-20] MEDS: IV D5/ 0.9% NACL 1,000 ML IV PRN (07:20)
[2017-08-20 07:49] LABS: CALCIUM, SERUM 8.5 mg/dL (8.5-10.1); CARBON DIOXIDE 26 mmol/L (21-32); CHLORIDE 109 mmol/L (98-107); CREATININE 0.8 mg/dL (0.6-1.3); GLUCOSE 93 mg/dL (74-106); MAGNESIUM 1.9 mg/dL (1.8-2.4); POTASSIUM 4.3 mmol/L (3.5-5.1); SODIUM SERUM 140 mmol/L (136-145); UREA NITROGEN, BLOOD 14 mg/dL (7-18)
[2017-08-20 07:58] LABS: BASOPHILS # (AUTO) 0.1 /CMM (0.0-0.2); BASOPHILS % (AUTO) 1.1 % (0.0-2.0); EOSINOPHILS # (AUTO) 0.3 /CMM (0.0-0.7); EOSINOPHILS % (AUTO) 6.9 % (0.0-6.0); HEMATOCRIT 35 % (33-45); HEMOGLOBIN 12.1 g/dL (11.5-14.8); LYMPHOCYTES # (AUTO) 1.3 /CMM (0.8-4.8); LYMPHOCYTES % (AUTO) 26.1 % (20.0-44.0); MEAN CORPUSCULAR HEMOGLOBIN 32 PG (26.0-33.0); MEAN CORPUSCULAR HGB CONC 34 g/dl (31.0-36.0); MEAN CORPUSCULAR VOLUME 94 fL (82-100); MONOCYTES # (AUTO) 0.4 /CMM (0.1-1.30); MONOCYTES % (AUTO) 8.3 % (2.0-12.0); NEUTROPHILS # (AUTO) 2.8 /CMM (1.8-8.9); NEUTROPHILS % (AUTO) 57.6 % (43.0-81.0); PLATELET COUNT (AUTO) 170 /CMM (150-450); RDW COEFFICIENT OF VARIATION 13.8 (11.5-15.0); RED BLOOD CELL COUNT(AUTO) 3.76 MIL/uL (4.0-5.2); WHITE BLOOD COUNT (AUTO) 4.9 K/uL (4.3-11.0)
[2017-08-20] MEDS: FLUTICASONE PROPIONATE 16 GM BOTTLE NS SCH (08:20)
[2017-08-20] MEDS: OLOPATADINE HCL 0.1% OPHTH BOTTLE EACHEYE SCH ×2 (08:21→17:00)
[2017-08-20] MEDS: ASPIRIN EC 81 MG TABLET.DR PO SCH (08:22)
[2017-08-20] MEDS: DOCUSATE SODIUM 100 MG CAPSULE PO SCH (08:23)
[2017-08-20] MEDS: MELOXICAM 7.5 MG TABLET PO SCH (08:23)
[2017-08-20] MEDS: PANTOPRAZOLE 40 MG TABLET.DR PO SCH (08:23)
[2017-08-20] MEDS: PRIMIDONE 50 MG TABLET PO SCH ×2 (08:23→16:58)
[2017-08-20] MEDS: CARBIDOPA/LEVODOPA 25/100 MG 1 UDTAB PO SCH ×3 (08:24→16:58)
[2017-08-20] MEDS: ENOXAPARIN SODIUM 30 MG/0.3 ML DISP.SYRIN SQ SCH (08:25)
[2017-08-20] MEDS: OXYBUTYNIN CHLORIDE ER 5 MG TAB PO SCH (08:28)
[2017-08-20] MEDS: LEVOTHYROXINE SODIUM 100 MCG TABLET PO SCH (08:28)
[2017-08-20 12:00] VITALS: BP 140/55
[2017-08-20] MEDS: Z GUARD REMEDY 2 OZ OINT TP SCH ×2 (12:32→21:57)
[2017-08-20 16:00] VITALS: BP 140/55
[2017-08-20] MEDS: LACTOBACILLUS RHAMNOSUS GG 1 EACH CAP.SPRINK PO SCH (16:58)
--- NOTE | 2017-08-20 18:30 | NUR ---
RN CLOSING NOTES PATIENT IN BED WATCHING TV, VERBALLY RESPONSIVE. NO ACUTE DISTRESS NOTED. DENIED ANY PAIN. IV ACCESS PATENT AND INTACT. BAUGH CATHETER INTACT DRAINING WELL. DUE MEDICATIONS GIVEN, NO ASE NOTED. SAFETY MEASURES IN PLACE.NEEDS ATTENDED. CALL LIGHT WITHIN REACH. WILL CONTINUE TO MONITOR ACCORDINGLY.WILL ENDORSE TO NIGHT NURSE FOR CONTINUITY OF CARE.
--- NOTE | 2017-08-20 19:30 | NUR ---
RN NOTES PATIENT IN BED , ALERT ORIENTED. HOB ELEVATED.NO SOB NOTED. NO ACUTE DISTRESS NOTED. DENIED ANY PAIN AT THIS TIME. IV ACCESS PATENT AND INTACT. BAUGH CATHETER IN PLACE, DRAINING WELL. SAFETY MEASURES IN PLACE. CALL LIGHT WITHIN REACH. WILL CONTINUE TO MONITOR.
[2017-08-20 20:00] VITALS: BP 135/67
[2017-08-20] MEDS: LATANOPROST EYE DROP 0.005% 2.5 ML BOTTLE EACHEYE SCH (21:57)
[2017-08-20] MEDS: TRAZODONE 50 MG TABLET PO SCH (22:00)
[2017-08-20] MEDS: AZITHROMYCIN 250 MG TABLET PO SCH (22:00)
[2017-08-20] MEDS: CEFTRIAXONE 1 G in IV D5W 50 ML IV SCH (22:05)
--- NOTE | 2017-08-20 23:40 | NUR ---
RN NOTES RECEIVE REPORT FROM NIGHT RN PATIENT IN BED A/O X 2-3. NO ACUTE DISTRESS NOTED. DENIED ANY PAIN AT THIS TIME. BAUGH CATHETER IN PLACE, DRAINING YELLOW VIA GRAVITY. SAFETY MEASURES IN PLACE. CALL LIGHT WITHIN REACH. WILL CONTINUE TO MONITOR.
--- NOTE | 2017-08-21 06:09 | NUR ---
MS RN CLOSING NOTES PT COMFORTABLY ASLEEP AND EASILY AWAKEN, TOLERATING ROOM AIR 02 SAT 97% IN STABLE CONDITION. RESPIRATION EVEN AND UNLABORED. KEPT CLEAN AND DRY AND COMFORTABLE, ALL NURSING CARE RENDERED. NEEDS ATTENDED AND ANTICIPATED, FREQUENT VISUAL CHECK DONE FOR SAFETY EVERY 2 HOURS. GOOD SKIN CARE PROVIDED. OFFLOAD AT ALL TIMES, NO COMPLAINS OF PAIN. ON LOW BED AT ALL TIMES TO ENSURE SAFETY. SAFE HAZARD FREE ENVIRONMENT PROVIDED. CALL LIGHT WITHIN EASY TO REACH. WILL ENDORSE NEXT SHIFT CONTINUITY OF CARE.
[2017-08-21 06:17] LABS: BASOPHILS % (AUTO) 0.8 % (0.0-2.0); EOSINOPHILS # (AUTO) 0.3 /CMM (0.0-0.7); EOSINOPHILS % (AUTO) 7.1 % (0.0-6.0); HEMATOCRIT 35 % (33-45); HEMOGLOBIN 11.8 g/dL (11.5-14.8); LYMPHOCYTES # (AUTO) 1.7 /CMM (0.8-4.8); LYMPHOCYTES % (AUTO) 36.9 % (20.0-44.0); MEAN CORPUSCULAR HEMOGLOBIN 32 PG (26.0-33.0); MEAN CORPUSCULAR HGB CONC 34 g/dl (31.0-36.0); MEAN CORPUSCULAR VOLUME 94 fL (82-100); MONOCYTES # (AUTO) 0.4 /CMM (0.1-1.30); MONOCYTES % (AUTO) 8.8 % (2.0-12.0); NEUTROPHILS # (AUTO) 2.2 /CMM (1.8-8.9); NEUTROPHILS % (AUTO) 46.4 % (43.0-81.0); PLATELET COUNT (AUTO) 205 /CMM (150-450); RDW COEFFICIENT OF VARIATION 13.4 (11.5-15.0); RED BLOOD CELL COUNT(AUTO) 3.69 MIL/uL (4.0-5.2); WHITE BLOOD COUNT (AUTO) 4.7 K/uL (4.3-11.0)
[2017-08-21 07:17] LABS: CALCIUM, SERUM 8.5 mg/dL (8.5-10.1); CARBON DIOXIDE 27 mmol/L (21-32); CHLORIDE 108 mmol/L (98-107); CREATININE 0.8 mg/dL (0.6-1.3); GLUCOSE 94 mg/dL (74-106); POTASSIUM 4.3 mmol/L (3.5-5.1); SODIUM SERUM 143 mmol/L (136-145); UREA NITROGEN, BLOOD 11 mg/dL (7-18)
--- NOTE | 2017-08-21 07:36 | NUR ---
RN NOTES RECEIVED PATIENT ASLEEP COMFORTABLY IN BED, EASILY AROUSABLE DURING CARE. RESPIRATIONS EVEN AND UNLABORED, IN NO APPARENT PAIN OR DISCOMFORT AT THIS TIME. IV ACCESS TO LEFT HAND PATENT AND INTACT, NO REDNESS OR INFILTRATION, SAFETY MEASURES IN PLACE, WILL CONTINUE TO MONITOR
[2017-08-21 08:00] VITALS: BP 126/56
[2017-08-21] MEDS: ASPIRIN EC 81 MG TABLET.DR PO SCH (08:45)
[2017-08-21] MEDS: DOCUSATE SODIUM 100 MG CAPSULE PO SCH (08:45)
[2017-08-21] MEDS: CARBIDOPA/LEVODOPA 25/100 MG 1 UDTAB PO SCH ×2 (08:46→12:04)
[2017-08-21] MEDS: PANTOPRAZOLE 40 MG TABLET.DR PO SCH (08:46)
[2017-08-21] MEDS: LACTOBACILLUS RHAMNOSUS GG 1 EACH CAP.SPRINK PO SCH (08:46)
[2017-08-21] MEDS: PRIMIDONE 50 MG TABLET PO SCH (08:46)
[2017-08-21] MEDS: OXYBUTYNIN CHLORIDE ER 5 MG TAB PO SCH (08:47)
[2017-08-21] MEDS: MELOXICAM 7.5 MG TABLET PO SCH (08:47)
[2017-08-21] MEDS: LEVOTHYROXINE SODIUM 100 MCG TABLET PO SCH (08:53)
[2017-08-21] MEDS: ENOXAPARIN SODIUM 30 MG/0.3 ML DISP.SYRIN SQ SCH (08:53)
[2017-08-21] MEDS: OLOPATADINE HCL 0.1% OPHTH BOTTLE EACHEYE SCH (08:58)
[2017-08-21] MEDS: FLUTICASONE PROPIONATE 16 GM BOTTLE NS SCH (08:59)
[2017-08-21] MEDS ORDERED: (Azelastine Hcl 1 DROP) EACHEYE SCH (09:00)
[2017-08-21] MEDS: Z GUARD REMEDY 2 OZ OINT TP SCH (09:48)
--- NOTE | 2017-08-21 11:00 | NUR ---
MS RN NOTES ALL MEDICATIONS WERE GIVEN, PATIENT TOLERATED WELL, WILL CONTINUE TO MONITOR.
[2017-08-21] MEDS ORDERED: LEVO500T75 PO (12:31)
--- NOTE | 2017-08-21 15:15 | NUR ---
MS RN NOTES PATIENT WITH A DISCHARGE ORDER, BAUGH CATHETER REMOVED PER MD ORDERS, TOLERATED WELL. ALL DISCHARGE INSTRUCTIONS AND PAPERWORK REVIEWED WITH THE PATIENT AND DAUGHTER (GOPAL). ASSISTED LIVING: ANITA, AWARE OF PATIENT'S DISCHARGE. ALL BELONGINGS ARE ACCOUNTED FOR. IV ACCESS DISCONTINUED WITH NO ADVERSE REACTIONS. ID BAND REMOVED. PICTURES OF THE SKIN TAKEN AND PLACED IN CHART. AWAITING TRANSPORTATION. WILL CONTINUE TO MONITOR.
[2017-08-21 16:14] VITALS: BP 151/76
--- NOTE | 2017-08-21 16:15 | NUR ---
GLASS TECHNOLOGIST NOTES PATIENT WITH DISCHARGE ORDERS, REPORT GIVEN TO EMT TRANSPORTER FOR CONTINUITY OF CARE, FAMILY AND ASSISTED LIVING AWARE, DISCHARGED IN STABLE CONDITION
== END 2017-08-21 16:15 | DRG 194 ==
LOC: ER 19:31 → MED 22:16
PROVIDERS: ADMIT Legal Medicine; ATTEND Legal Medicine
DX: J15.9 Unspecified bacterial pneumonia (principal); J44.0 Chronic obstructive pulmonary disease with (acute) lower respiratory infection; G20 Parkinson's disease; I11.0 Hypertensive heart disease with heart failure; I50.9 Heart failure, unspecified; N39.0 Urinary tract infection, site not specified; F03.90 Unspecified dementia, unspecified severity, without behavioral disturbance, psychotic disturbance, mood disturbance, and anxiety; E03.9 Hypothyroidism, unspecified; K21.9 Gastro-esophageal reflux disease without esophagitis; H40.9 Unspecified glaucoma; I25.10 Atherosclerotic heart disease of native coronary artery without angina pectoris; M19.90 Unspecified osteoarthritis, unspecified site; Z90.710 Acquired absence of both cervix and uterus; B96.4 Proteus (mirabilis) (morganii) as the cause of diseases classified elsewhere; B96.1 Klebsiella pneumoniae [K. pneumoniae] as the cause of diseases classified elsewhere; F32.9 Major depressive disorder, single episode, unspecified; F41.9 Anxiety disorder, unspecified; L98.8 Other specified disorders of the skin and subcutaneous tissue; R10.9 Unspecified abdominal pain; L30.4 Erythema intertrigo
CPT/HCPCS: 36415; 71045-TC; 80048-TC; 80076-TC; 81000-TC; 83690-TC; 83735-TC; 85025-TC; 87040-TC; 87081-TC; 87086-TC; 87186-TC; A4606; J0692; J0696; J1650; J2405; J7042; J7060; Z7610

== ENCOUNTER 2018-02-25 11:03 | Emergency (ER) | payer MEDICARE, OTHER ==
[~2018-02-25] VITALS: Ht 160 cm; Wt 70.3 kg
[~2018-02-25 11:03] MED LIST changes: +ACET-2117 PO; -ACET-2605 PO; -ALBU8.5H8 IH; +AZEL6DRO5 EACHEYE; +BISA10SU8 RC; +CLOT15CR63 TP; -CRAN400T4 PO; -DEXT15DR23 EACHEYE; +DEXT1CAP3 PO; -FURO40TA5 PO; +LEVO500T75 PO; +MECL-102 PO; -MELO15TA13 PO; -METO2.5T2 PO; +OLOP2.5D5 EACHEYE; -OLOP5DRO EACHEYE; -POTA20TA83 PO; -TOPI50TA24 PO; -TRAZ-144 PO; +TRAZ-182 PO; +TRIA80CR2 TP
--- NOTE | 2018-02-25 11:05 | NUR ---
aaox2 bibpa from [facility] c/o headache s/p unwitness glf, scalp hematoma to right lateral head noted. skin is warm and dry. spo2=89% on RA. placed on nc at 2L/min with new SP02 96%. Placed on the monitor. Awaiting md for eval.
--- NOTE | 2018-02-25 11:25 | NUR ---
dr sabillon at bedside for eval.
[2018-02-25] MEDS ORDERED: ACETAMINOPHEN ES 500 MG TABLET PO ONE (11:30)
[2018-02-25 11:39] LABS: BASOPHILS # (AUTO) 0.1 /CMM (0.0-0.2); BASOPHILS % (AUTO) 0.8 % (0.0-2.0); EOSINOPHILS % (AUTO) 0.7 % (0.0-6.0); HEMATOCRIT 38 % (33-45); HEMOGLOBIN 12.6 g/dL (11.5-14.8); LYMPHOCYTES # (AUTO) 0.8 /CMM (0.8-4.8); LYMPHOCYTES % (AUTO) 8.8 % (20.0-44.0); MEAN CORPUSCULAR HEMOGLOBIN 30 PG (26.0-33.0); MEAN CORPUSCULAR HGB CONC 33 g/dl (31.0-36.0); MEAN CORPUSCULAR VOLUME 90 fL (82-100); MONOCYTES # (AUTO) 0.5 /CMM (0.1-1.30); MONOCYTES % (AUTO) 5.4 % (2.0-12.0); NEUTROPHILS # (AUTO) 7.4 /CMM (1.8-8.9); NEUTROPHILS % (AUTO) 84.3 % (43.0-81.0); PLATELET COUNT (AUTO) 279 /CMM (150-450); RDW COEFFICIENT OF VARIATION 15.1 (11.5-15.0); RED BLOOD CELL COUNT(AUTO) 4.27 MIL/uL (4.0-5.2); WHITE BLOOD COUNT (AUTO) 8.9 K/uL (4.3-11.0)
[2018-02-25] MEDS ORDERED: ACETAMINOPHEN ES 500 MG TABLET ONE (11:44)
[2018-02-25 11:49] LABS: CALCIUM, SERUM 8.4 mg/dL (8.5-10.1); CARBON DIOXIDE 23 mmol/L (21-32); CHLORIDE 100 mmol/L (98-107); CREATININE 1.1 mg/dL (0.6-1.3); GLUCOSE 107 mg/dL (74-106); POTASSIUM 3.7 mmol/L (3.5-5.1); SODIUM SERUM 134 mmol/L (136-145); UREA NITROGEN, BLOOD 9 mg/dL (7-18)
[2018-02-25] MEDS ORDERED: LEVO500T90 PO (11:56)
[2018-02-25] MEDS ORDERED: MAGN400O6 PO (11:56)
[2018-02-25] MEDS ORDERED: DORZ10DR10 EACHEYE (11:56)
[2018-02-25] MEDS ORDERED: FLUT1BLS IH (11:56)
[2018-02-25] MEDS ORDERED: LOPE2CAP PO (11:56)
[2018-02-25] MEDS ORDERED: BRIM5DRO3 EACHEYE (11:56)
[2018-02-25] MEDS ORDERED: BENZ200C53 PO (11:56)
[2018-02-25] MEDS ORDERED: PROM6.256 PO (11:56)
[2018-02-25] MEDS ORDERED: ALBU18HF2 IH (11:56)
[2018-02-25] MEDS ORDERED: VALS80TA2 PO (11:56)
[2018-02-25] MEDS ORDERED: ONDA4TAB5 PO (11:56)
[2018-02-25 11:58] LABS: TROPONIN I < 0.017 ng/mL (0.00-0.056)
[2018-02-25 12:04] LABS: APPEARANCE,URINE Cloudy (CLEAR); BILIRUBIN,URINE Negative (NEGATIVE); BLOOD, URINE Moderate Ery/uL (NEGATIVE); COLOR,URINE Yellow (YELLOW); KETONES,URINE Trace (NEGATIVE); LEUKOCYTE ESTERASE ,URINE Moderate (NEGATIVE); NITRITE, URINE Positive (NEGATIVE); PH,URINE 5.5 (5.0-8.0); PROTEIN,URINE 30 mg/dl (NEGATIVE); UGLUCOSE Negative (NEGATIVE); UROBILINOGEN,URINE 0.2 EU/dL (0.2)
[2018-02-25 12:16] LABS: BACTERIA,URINE Many /HPF (None Seen); SQUAMOUS EPITHELIAL CELL,UR Few /HPF (None Seen); WBC,URINE 50-80 /HPF (0-3)
--- NOTE | 2018-02-25 12:25 | NUR ---
pt to radiology for head ct scan via [facility].
[2018-02-25] MEDS ORDERED: CEFTRIAXONE 1GM BAG (ER ONLY) 1 GM/50 ML PIGGYBACK IV ONE (12:30)
--- NOTE | 2018-02-25 13:30 | NUR ---
CALLED [facility] AND SPOKE TO OCTOBER TO ARRANGE A BLS TRANSPORT BACK TO THE PT'S LONG TERM HOME. WAS GIVEN A AQUATICS DIRECTOR TIME OF 1400 TRIP #: [id number]
--- NOTE | 2018-02-25 14:11 | NUR ---
REPORT GIVEN TO [facility].
[2018-02-25 14:36] VITALS: BP 119/68
--- NOTE | 2018-02-25 14:36 | NUR ---
D/C BACK TO SNF. STABLE CONDITION. IV removed. Catheter intact and site benign. Pressure and 4x4 applied to site. No bleeding noted.
== END 2018-02-25 14:37 | disposition home or self-care (01) ==
LOC: ER 11:04
DX: S00.03XA Contusion of scalp, initial encounter (principal); N39.0 Urinary tract infection, site not specified; F03.90 Unspecified dementia, unspecified severity, without behavioral disturbance, psychotic disturbance, mood disturbance, and anxiety; R56.9 Unspecified convulsions; K21.9 Gastro-esophageal reflux disease without esophagitis; I10 Essential (primary) hypertension; R32 Unspecified urinary incontinence; E03.9 Hypothyroidism, unspecified; H40.9 Unspecified glaucoma; Z88.5 Allergy status to narcotic agent; Z88.1 Allergy status to other antibiotic agents; Z88.6 Allergy status to analgesic agent; Z79.82 Long term (current) use of aspirin; Z90.710 Acquired absence of both cervix and uterus; Z98.890 Other specified postprocedural states; W18.30XA Fall on same level, unspecified, initial encounter; Y93.89 Activity, other specified; Y92.89 Other specified places as the place of occurrence of the external cause; Y99.8 Other external cause status
CPT/HCPCS: 36415; 70450-TC; 80048-TC; 81000-TC; 84484-TC; 85025-TC; 87086-TC; 87186-TC; A4606; J0696; J7030; Z7610

== ENCOUNTER 2018-02-28 14:49 | Inpatient (IN) | payer MEDICARE, OTHER ==
[~2018-02-28] VITALS: Ht 152.4 cm; Wt 67.6 kg
[~2018-02-28 14:49] MED LIST changes: +ALBU18HF2 IH; +BENZ200C53 PO; +BRIM5DRO3 EACHEYE; -CLOT15CR63 TP; +DORZ10DR10 EACHEYE; +ENOXAPARIN SODIUM 60 MG/0.6 ML DISP.SYRIN SQ SCH; +FLUT1BLS IH; -LEVO500T75 PO; +LEVO500T90 PO; +LOPE2CAP PO; +MAGN400O6 PO; +ONDA4TAB5 PO; +PROM6.256 PO; -TRIA80CR2 TP; +VALS80TA2 PO
--- NOTE | 2018-02-28 15:54 | NUR ---
CALLED DR MINAYA OFFICE, WAS PAGED.
[2018-02-28] MEDS ORDERED: ENOXAPARIN SODIUM 80 MG/0.8 ML DISP.SYRIN SQ ONE (16:00)
[2018-02-28] MEDS ORDERED: ENOXAPARIN SODIUM 60 MG/0.6 ML DISP.SYRIN SQ ONE (16:27)
[2018-02-28 16:30] LABS: BASOPHILS # (AUTO) 0.1 /CMM (0.0-0.2); EOSINOPHILS % (AUTO) 1.6 % (0.0-6.0); HEMATOCRIT 33 % (33-45); LYMPHOCYTES # (AUTO) 1.3 /CMM (0.8-4.8); LYMPHOCYTES % (AUTO) 23.2 % (20.0-44.0); MEAN CORPUSCULAR HEMOGLOBIN 30 PG (26.0-33.0); MEAN CORPUSCULAR HGB CONC 34 g/dl (31.0-36.0); MEAN CORPUSCULAR VOLUME 90 fL (82-100); MONOCYTES # (AUTO) 0.3 /CMM (0.1-1.30); MONOCYTES % (AUTO) 6.2 % (2.0-12.0); NEUTROPHILS # (AUTO) 3.7 /CMM (1.8-8.9); PLATELET COUNT (AUTO) 234 /CMM (150-450); RDW COEFFICIENT OF VARIATION 15.3 (11.5-15.0); RED BLOOD CELL COUNT(AUTO) 3.65 MIL/uL (4.0-5.2); WHITE BLOOD COUNT (AUTO) 5.5 K/uL (4.3-11.0)
--- NOTE | 2018-02-28 16:35 | NUR ---
bb private ems for positive PE on CT scan. PT AAOX3, VSS. DENIES CP, SOB, DIZZINESS, N/V, NAD NOTED @ THIS TIME. PT SEEN & EVAL'D BY DR. PERRY. MEDICATED WITH 60 MG OF LOVENOX SQ, PT CATHIE WELL.
--- NOTE | 2018-02-28 16:35 | NUR ---
CALLED DR MINAYA OFFICE, WAS REPAGED.
[2018-02-28 16:39] LABS: CALCIUM, SERUM 7.9 mg/dL (8.5-10.1); CARBON DIOXIDE 25 mmol/L (21-32); CHLORIDE 98 mmol/L (98-107); GLUCOSE 100 mg/dL (74-106); SODIUM SERUM 127 mmol/L (136-145); UREA NITROGEN, BLOOD 10 mg/dL (7-18)
[2018-02-28 16:43] LABS: INR 0.96 (0.85-1.15)
[2018-02-28 16:45] LABS: ALANINE AMINOTRANSFERASE < 6 U/L (12-78); ALBUMIN 2.5 g/dL (3.4-5.0); ALKALINE PHOSPHATASE 104 U/L (46-116); ASPARTATE AMINOTRANSFERASE 7 U/L (15-37); BILIRUBIN,DIRECT 0.1 mg/dL (0.0-0.2); BILIRUBIN,TOTAL 0.3 mg/dL (0.2-1.0); TOTAL PROTEIN, SERUM 5.8 g/dL (6.4-8.2)
[2018-02-28 16:47] LABS: TROPONIN I < 0.017 ng/mL (0.00-0.056)
[2018-02-28 18:00] VITALS: BP 118/64
--- NOTE | 2018-02-28 18:15 | NUR ---
DESIGN AND SALES CONSULTANT INITIAL NOTES RECEIVED REPORT AND PATIENT, A&O X4 YAKUT SPEAKING, SPEAKS SOFT AND SLOW, ON RA SAT ABOVE 96% NO SOB OR ACUTE DISTRESS NOTED, ON TELE MON SR WITH HR 78, INCONTINENT DIAPER, CARDIAC SOFT DIET, ASPIRATION PRECUATION, RIGHT WRIST 20G IV SITE INTACT AND PATENT NO INFILTRATION NOTED SALINE LOCKED, WOUND PICTURES PLACED IN CHART, ORDERS BY DR SANTOS PLACED IN CHART, ALL NEEDS MET, ALL SAFETY MEASURES INITIATED, BELONGINGS LIST COMPLETE, ID BAND PLACED, WILL CONTINUE TO MONITOR AND ENDORSE TO PM NURSE.
[2018-02-28 20:00] VITALS: BP 135/67
[2018-02-28] MEDS ORDERED: LORAZEPAM 0.5 MG TABLET PO PRN (20:00)
[2018-02-28] MEDS ORDERED: ONDANSETRON HCL/PF 4 MG/2 ML VIAL IVP PRN ×2 (20:00→21:00)
[2018-02-28] MEDS ORDERED: BISACODYL SUPP (10 MG) 10 MG/SUPP.RECT SUPP.RECT RC PRN (20:30)
[2018-02-28] MEDS ORDERED: LOPERAMIDE HCL (2 MG CAP) 2 MG CAPSULE PO PRN (20:30)
[2018-02-28] MEDS ORDERED: MECLIZINE HCL 25 MG TABLET PO PRN (20:30)
[2018-02-28] MEDS ORDERED: DOCUSATE SODIUM 100 MG CAPSULE PO PRN (20:30)
[2018-02-28] MEDS ORDERED: ALBUTEROL FS 2.5 MG/0.5 ML VIAL.NEB IH PRN (20:30)
[2018-02-28] MEDS: TRAZODONE 50 MG TABLET PO SCH (21:28)
[2018-02-28] MEDS: LATANOPROST EYE DROP 0.005% 2.5 ML BOTTLE EACHEYE SCH (21:28)
[2018-02-28] MEDS: ESCITALOPRAM OXALATE (10 MG) 10 MG TABLET PO SCH (21:28)
[2018-03-01] VITALS: BP 110/45
[2018-03-01 04:00] VITALS: BP 155/62
[2018-03-01] MEDS: PANTOPRAZOLE 40 MG TABLET.DR PO SCH (07:30)
[2018-03-01] MEDS: LEVOTHYROXINE SODIUM 100 MCG TABLET PO SCH (07:30)
[2018-03-01 08:00] VITALS: BP 128/50
[2018-03-01] MEDS: CARBIDOPA/LEVODOPA 25/100 MG 1 UDTAB PO SCH ×3 (09:00→17:39)
[2018-03-01] MEDS: DORZOLAMIDE OPTH 2% 10 ML BOTTLE EACHEYE SCH ×2 (09:00→17:00)
[2018-03-01] MEDS: BRIMONIDINE TARTRATE OPHT SOLN 5 ML BOTTLE EACHEYE SCH ×2 (09:00→17:38)
[2018-03-01] MEDS: FLUTICASONE/VILANTEROL 1 EACH BLST.W.DEV IH SCH (09:00)
[2018-03-01] MEDS: PRIMIDONE 50 MG TABLET PO SCH ×2 (09:54→17:39)
[2018-03-01] MEDS: MELOXICAM 7.5 MG TABLET PO SCH (09:54)
[2018-03-01] MEDS: ASPIRIN EC 81 MG TABLET.DR PO SCH (09:54)
[2018-03-01 12:00] VITALS: BP 104/45
[2018-03-01] MEDS ORDERED: Z GUARD REMEDY 2 OZ OINT TP PRN (14:00)
[2018-03-01 16:00] VITALS: BP 103/46
[2018-03-01] MEDS ORDERED: ENOXAPARIN SODIUM 60 MG/0.6 ML DISP.SYRIN SQ SCH (16:00)
[2018-03-01] MEDS: CLOTRIMAZOLE 1% 15 GM TUBE TP SCH (16:00)
[2018-03-01] MEDS: OLOPATADINE HCL 0.1% OPHTH BOTTLE EACHEYE SCH (17:00)
--- NOTE | 2018-03-01 19:18 | NUR ---
Patient rounds for handoff with night nurse, MONY Peraza. Derek Nice RN
--- NOTE | 2018-03-01 19:30 | NUR ---
RN OPENING NOTES: RECEIVED PATIENT ON BED AWAKE AND ALERT X1-2 NOT IN APPARENT DISTRESS ON ROOM AIR. SR ON THE MONITOR. FAMILY MEMBERS AT BEDSIDE UPDATED WITH CARE. IV ACCESS INTACT. INCONTINENT. BED ALARM ON, CALL LIGHT WITHIN REACH AT ALL TIMES. SAFETY MEASURES ENSURED AT ALL TIMES. CONTINUOUSLY MONITORED.
[2018-03-01 20:00] VITALS: BP 104/44
[2018-03-01] MEDS: LATANOPROST EYE DROP 0.005% 2.5 ML BOTTLE EACHEYE SCH (21:31)
[2018-03-01] MEDS: TRAZODONE 50 MG TABLET PO SCH (21:32)
[2018-03-01] MEDS: ESCITALOPRAM OXALATE (10 MG) 10 MG TABLET PO SCH (21:32)
[2018-03-02] VITALS (7 sets, daily range): BP systolic 91–155; BP diastolic 30–47
[2018-03-02] MEDS: ACETAMINOPHEN 325 MG TABLET PO PRN ×2 (00:04→22:29)
--- NOTE | 2018-03-02 03:59 | NUR ---
RN NOTES: RECEIVED REPORT FROM DR REARDON RADIOLOGIST REGARDING US DOPPLER OF BLE RESULTS: RIGHT LEG POSITIVE FOR POPLITEAL DVT; LEFT LEG NEGATIVE. TO INFORM MD. PATIENT ALREADY ON LOVENOX. CONTINUOUSLY MONITORED.
[2018-03-02] MEDS: CLOTRIMAZOLE 1% 15 GM TUBE TP SCH ×2 (05:02→16:01)
[2018-03-02 06:59] LABS: BASOPHILS % (AUTO) 0.8 % (0.0-2.0); EOSINOPHILS % (AUTO) 5.4 % (0.0-6.0); HEMATOCRIT 33 % (33-45); HEMOGLOBIN 10.8 g/dL (11.5-14.8); LYMPHOCYTES # (AUTO) 1.5 /CMM (0.8-4.8); LYMPHOCYTES % (AUTO) 27.8 % (20.0-44.0); MEAN CORPUSCULAR HEMOGLOBIN 31 PG (26.0-33.0); MEAN CORPUSCULAR HGB CONC 33 g/dl (31.0-36.0); MEAN CORPUSCULAR VOLUME 94 fL (82-100); MONOCYTES # (AUTO) 0.4 /CMM (0.1-1.30); NEUTROPHILS # (AUTO) 3.2 /CMM (1.8-8.9); PLATELET COUNT (AUTO) 235 /CMM (150-450); RDW COEFFICIENT OF VARIATION 16.5 (11.5-15.0); RED BLOOD CELL COUNT(AUTO) 3.51 MIL/uL (4.0-5.2); WHITE BLOOD COUNT (AUTO) 5.4 K/uL (4.3-11.0)
--- NOTE | 2018-03-02 07:24 | NUR ---
RN CLOSING NOTES: PATIENT REMAINED IN BED NOT IN APPARENT DISTRESS. REMAINED SR ON THE MONITOR.NO FURTHER COMPLAINTS OF PAIN. NO OTHER ACUTE CHANGES OVERNIGHT. SAFETY MEASURES ENSURED. SKIN CARE RENDERED. CONTINUOUSLY MONITORED. ENDORSED TO AM SHIFT RN.
[2018-03-02 07:25] LABS: CALCIUM, SERUM 8.2 mg/dL (8.5-10.1); CARBON DIOXIDE 28 mmol/L (21-32); CHLORIDE 101 mmol/L (98-107); CREATININE 0.8 mg/dL (0.6-1.3); GLUCOSE 98 mg/dL (74-106); MAGNESIUM 1.7 mg/dL (1.8-2.4); POTASSIUM 4.7 mmol/L (3.5-5.1); SODIUM SERUM 133 mmol/L (136-145); UREA NITROGEN, BLOOD 18 mg/dL (7-18)
[2018-03-02] MEDS: FLUTICASONE/VILANTEROL 1 EACH BLST.W.DEV IH SCH (08:54)
[2018-03-02] MEDS: MELOXICAM 7.5 MG TABLET PO SCH (08:54)
[2018-03-02] MEDS: ASPIRIN EC 81 MG TABLET.DR PO SCH (08:54)
[2018-03-02] MEDS: PANTOPRAZOLE 40 MG TABLET.DR PO SCH (08:55)
[2018-03-02] MEDS: BRIMONIDINE TARTRATE OPHT SOLN 5 ML BOTTLE EACHEYE SCH ×2 (08:55→17:08)
[2018-03-02] MEDS: DORZOLAMIDE OPTH 2% 10 ML BOTTLE EACHEYE SCH ×2 (08:55→17:08)
[2018-03-02] MEDS: LEVOTHYROXINE SODIUM 100 MCG TABLET PO SCH (08:55)
[2018-03-02] MEDS: PRIMIDONE 50 MG TABLET PO SCH ×2 (08:55→17:08)
[2018-03-02] MEDS: CARBIDOPA/LEVODOPA 25/100 MG 1 UDTAB PO SCH ×3 (08:55→17:07)
[2018-03-02] MEDS: OLOPATADINE HCL 0.1% OPHTH BOTTLE EACHEYE SCH ×2 (08:56→17:08)
[2018-03-02] MEDS: Magnesium 1GM/D5W 100ML PREMIX 100 ML IV SCH ×2 (12:00→13:30)
[2018-03-02] MEDS ORDERED: RIVAROXABAN 15 MG TABLET PO SCH ×3 (17:00→21:00)
[2018-03-02] MEDS: RIVAROXABAN 15 MG TABLET PO SCH (17:44)
--- NOTE | 2018-03-02 19:30 | NUR ---
RESERVATIONS CLERK INITIAL NOTE RECEIVED PATIENT AWAKE ALERT AND ORIENTED, DENIES PAIN OR DISCOMFORT. DENIES SOB. SKIN WARM AND DRY TO TOUCH. ON TELE MONITOR SR WITH BBB. ISOLATION PRECAUTIONS OBSERVED. HOB ELEVATED. SIDE RAILS UP AND LOCKED. BED KEPT AT LOWEST POSITION. CALL LIGHT KEPT WITHIN EASY REACH. WILL CONTINUE TO MONITOR.
[2018-03-02] MEDS: LATANOPROST EYE DROP 0.005% 2.5 ML BOTTLE EACHEYE SCH (21:19)
[2018-03-02] MEDS: TRAZODONE 50 MG TABLET PO SCH (21:19)
[2018-03-02] MEDS: MUPIROCIN OINT 2% 22 GM TUBE SCH (21:19)
[2018-03-02] MEDS: ESCITALOPRAM OXALATE (10 MG) 10 MG TABLET PO SCH (21:24)
--- NOTE | 2018-03-02 22:54 | NUR ---
ADVOCACY DIRECTOR NOTE NOTED PATIENT DIAPHORETIC, BLOOD SUGAR 111, TEMP 97.8 ORALLY, BP 100/37. STATES SHE HAS PAIN 5/10 OF BILATERAL KNEES, PRN TYLENOL GIVEN. WILL CONTINUE TO MONITOR.
[2018-03-03] VITALS: BP 82/30
--- NOTE | 2018-03-03 | NUR ---
NEWS CLIPPING CUTTER NOTE NOTED WITH LOW BP, ASYMPTOMATIC, AROUSABLE, AWAKE, FOLLOWS SIMPLE COMMANDS, WILL CONTINUE TO MONITOR.
[2018-03-03 04:00] VITALS: BP 113/32
[2018-03-03] MEDS: RIVAROXABAN 15 MG TABLET PO SCH (05:00)
[2018-03-03] MEDS: CLOTRIMAZOLE 1% 15 GM TUBE TP SCH (05:01)
--- NOTE | 2018-03-03 06:08 | NUR ---
WELDING MACHINE OPERATOR SUBMERGED ARC NOTE DR. SANTOS AT BEDSIDE, CLARIFIED PATIENTS CODE STATUS. PER DR. SANTOS HE SPOKE WITH DAUGHTER AND SHE WISHES HER TO BE FULL CODE. Addendum: 03/03/18 at 0611 by JERALD WATSON RN INFORMED MD REGARDING LOW BP AND SINUS DIANNA WHEN PATIENT IS ASLEEP, ASYMPTOMATIC. NNO. WILL CONTINUE TO MONITOR.
--- NOTE | 2018-03-03 07:02 | NUR ---
PHARMACOVIGILANCE SPECIALIST CLOSING NOTE NO SIGNIFICANT CHANGES OVERNIGHT. ALL NEEDS ANTICIPATED AND MET. ALL DUE MEDS GIVEN . NO C/O PAIN OR DISCOMFORT AT THIS TIME. SLEPT WELL THROUGH THE NIGHT. NO C/O SOB. KEPT CLEAN AND DRY. TURNED AND REPOSITIONED Q2 AND PRN. HOB ELEVATED. SIDE RAILS UP AND LOCKED. BED KEPT AT LOWEST POSITION. CALL LIGHT KEPT WITHIN EASY REACH. ISOLATION PRECAUTIONS. POSSIBLE DISCHARGE TODAY PER DR. SANTOS, BACK TO [facility] OR [facility]. WILL ENDORSE CONTINUITY OF CARE TO AM NURSE.
[2018-03-03 07:47] LABS: CALCIUM, SERUM 8.3 mg/dL (8.5-10.1); CARBON DIOXIDE 28 mmol/L (21-32); CHLORIDE 102 mmol/L (98-107); CREATININE 0.9 mg/dL (0.6-1.3); GLUCOSE 93 mg/dL (74-106); MAGNESIUM 2.5 mg/dL (1.8-2.4); POTASSIUM 4.6 mmol/L (3.5-5.1); SODIUM SERUM 135 mmol/L (136-145); UREA NITROGEN, BLOOD 17 mg/dL (7-18)
[2018-03-03 08:00] VITALS: BP_SYST 116; BP_DIAS 36; BP_DIAS 64
[2018-03-03] MEDS: OLOPATADINE HCL 0.1% OPHTH BOTTLE EACHEYE SCH (08:14)
[2018-03-03] MEDS: DORZOLAMIDE OPTH 2% 10 ML BOTTLE EACHEYE SCH (08:14)
[2018-03-03] MEDS: ASPIRIN EC 81 MG TABLET.DR PO SCH (08:14)
[2018-03-03] MEDS: BRIMONIDINE TARTRATE OPHT SOLN 5 ML BOTTLE EACHEYE SCH (08:14)
[2018-03-03] MEDS: CARBIDOPA/LEVODOPA 25/100 MG 1 UDTAB PO SCH ×2 (08:14→12:43)
[2018-03-03] MEDS: LEVOTHYROXINE SODIUM 100 MCG TABLET PO SCH (08:14)
[2018-03-03] MEDS: PANTOPRAZOLE 40 MG TABLET.DR PO SCH (08:14)
[2018-03-03] MEDS: MELOXICAM 7.5 MG TABLET PO SCH (08:15)
[2018-03-03] MEDS: FLUTICASONE/VILANTEROL 1 EACH BLST.W.DEV IH SCH (08:15)
[2018-03-03] MEDS: PRIMIDONE 50 MG TABLET PO SCH (09:44)
[2018-03-03] MEDS: MUPIROCIN OINT 2% 22 GM TUBE SCH (09:44)
[2018-03-03 12:00] VITALS: BP 108/45
--- NOTE | 2018-03-03 12:15 | NUR ---
RN note: Report called to [facility], report given to MONY Rodriguez for TESHA. Est p/u time 1300. DC instructions and orders reviewed. Call back # provided.
--- NOTE | 2018-03-03 13:23 | NUR ---
RN Note: Discharge - pt educated on DC, nodded head in agreement, needs reinforcement. Pt VSS, no distress noted. IV HL d/c'd, catheter tip intact. All paperwork and belongings signed and accounted for. Sent by ambulance to [facility]. Tele box returned to tele desk.
== END 2018-03-03 14:19 | DRG 175 ==
LOC: ER 14:52 → TELE1 18:03
PROVIDERS: ADMIT Legal Medicine; ATTEND Legal Medicine
DX: I26.99 Other pulmonary embolism without acute cor pulmonale (principal); L89.153 Pressure ulcer of sacral region, stage 3; I82.431 Acute embolism and thrombosis of right popliteal vein; I10 Essential (primary) hypertension; J44.9 Chronic obstructive pulmonary disease, unspecified; G20 Parkinson's disease; F03.90 Unspecified dementia, unspecified severity, without behavioral disturbance, psychotic disturbance, mood disturbance, and anxiety; E78.5 Hyperlipidemia, unspecified; E03.9 Hypothyroidism, unspecified; H40.9 Unspecified glaucoma; K21.9 Gastro-esophageal reflux disease without esophagitis; Z79.82 Long term (current) use of aspirin; Z90.710 Acquired absence of both cervix and uterus; L30.4 Erythema intertrigo
CPT/HCPCS: 36415; 70450-TC; 80048-TC; 80076-TC; 81000-TC; 82962-TC; 83735-TC; 84484-TC; 85025-TC; 85730-TC; 87081-TC; 87086-TC; 87186-TC; 92521; 93970-TC; A4606; J1650; J3475; J7030; J7050; Z7610

== ENCOUNTER 2020-06-18 08:16 | Emergency (ER) | payer MEDICARE, OTHER ==
[~2020-06-18] VITALS: Ht 152.4 cm; Wt 54.0 kg
[~2020-06-18 08:16] MED LIST changes: -ACET-2117 PO; +ACET-868 PO; -ALBU18HF2 IH; +ALBU2.5V38 IH; -ASPI-1152 PO; -AZEL6DRO5 EACHEYE; -BENZ200C53 PO; +BISA10SU11 RC; -BISA10SU8 RC; -DEXT1CAP3 PO; -ENOXAPARIN SODIUM 60 MG/0.6 ML DISP.SYRIN SQ SCH; -FLUT16SP BNOSTRILS; -LEVO500T90 PO; +LORA0.5T PO; -MAGN400O6 PO; -MECL-102 PO; +MECL-159 PO; -MELO-105 PO; +MUPI22OI7 NS; -OLOP2.5D5 EACHEYE; +OLOP5DRO EACHEYE; -OXYB10TA PO; +PANT40TA2 PO; -PROM6.256 PO; -VALS80TA2 PO
--- NOTE | 2020-06-18 08:23 | NUR ---
PT [facility] with c/o blood in the stool and diarrhea this morning. pt alert and able to follow commands. no c/o pain or discomfort at this time
--- NOTE | 2020-06-18 08:30 | NUR ---
md at bedside for eval. skin and body assessment done. noted with stool but no visible blood in the stool.
--- NOTE | 2020-06-18 08:34 | NUR ---
IV LINE ESTABLISHED. BLOOD DRAWN AND SENT TO LAB
[2020-06-18 08:46] LABS: BASOPHILS % (AUTO) 0.8 % (0.0-2.0); EOSINOPHILS % (AUTO) 2.4 % (0.0-6.0); HEMATOCRIT 37 % (33-45); HEMOGLOBIN 12.1 g/dL (11.5-14.8); LYMPHOCYTES # (AUTO) 1.4 /CMM (0.8-4.8); LYMPHOCYTES % (AUTO) 32.3 % (20.0-44.0); MEAN CORPUSCULAR HGB CONC 32 g/dl (31.0-36.0); MEAN CORPUSCULAR VOLUME 98 fL (82-100); MONOCYTES # (AUTO) 0.3 /CMM (0.1-1.30); MONOCYTES % (AUTO) 6.1 % (2.0-12.0); NEUTROPHILS # (AUTO) 2.5 /CMM (1.8-8.9); NEUTROPHILS % (AUTO) 58.4 % (43.0-81.0); PLATELET COUNT (AUTO) 212 /CMM (150-450); RED BLOOD CELL COUNT(AUTO) 3.81 MIL/uL (4.0-5.2); WHITE BLOOD COUNT (AUTO) 4.3 K/uL (4.3-11.0)
[2020-06-18 08:53] LABS: CREATININE 1.1 mg/dL (0.6-1.3); POTASSIUM 4.4 mmol/L (3.5-5.1)
[2020-06-18 09:00] LABS: ALBUMIN 3.3 g/dL (3.4-5.0); BILIRUBIN,DIRECT 0.1 mg/dL (0.0-0.2); BILIRUBIN,TOTAL 0.4 mg/dL (0.2-1.0); TOTAL PROTEIN, SERUM 6.7 g/dL (6.4-8.2)
[2020-06-18] MEDS ORDERED: IOHEXOL-300 100 ML VIAL IV ONE (09:11)
[2020-06-18] MEDS ORDERED: IV NS 0.9% 250 ML IV ONE (09:12)
[2020-06-18 09:29] LABS: OCCULT BLOOD STOOL NEGATIVE (NEGATIVE)
[2020-06-18 10:33] VITALS: BP 119/87
--- NOTE | 2020-06-18 13:00 | NUR ---
TRANSPORT CALLED ETA 30MINS
== END 2020-06-18 13:48 ==
LOC: ER 08:21
DX: K57.30 Diverticulosis of large intestine without perforation or abscess without bleeding (principal); F03.90 Unspecified dementia, unspecified severity, without behavioral disturbance, psychotic disturbance, mood disturbance, and anxiety; I10 Essential (primary) hypertension; J44.9 Chronic obstructive pulmonary disease, unspecified; E03.9 Hypothyroidism, unspecified; Z90.710 Acquired absence of both cervix and uterus; Z98.890 Other specified postprocedural states; Z88.8 Allergy status to other drugs, medicaments and biological substances; Z88.5 Allergy status to narcotic agent; Z79.899 Other long term (current) drug therapy
CPT/HCPCS: 36415; 74177; 80048; 80076; 82272; 83690; 85025; 85730; 99285; J7050; Q9967